=== PATIENT | female | born 1975 | race Caucasian/White ===

== ENCOUNTER 2016-10-27 08:14 | Emergency (ER) | payer BC ==
[2016-10-27 08:20] VITALS: O2SAT 96
--- NOTE | 2016-10-27 08:37 | ERPHSYRPT ---
- History of Present Illness Time Seen by Provider: 10/27/16 08:27 Source: patient Exam Limitations: no limitations Patient Subjective Stated Complaint: rt flankl pain Triage Nursing Assessment: rt flank pain for 1 week. nonproductive cough for one week. pain with movment to rt arm and deep breath. no n/v/d. no fever. denies injury. lungs clear Physician History: Patient is a 41-year-old female who complains of a cough for more than one week and right sided chest pain that is increasing and is exacerbated by moving her right arm, moving her trunk, and coughing. Last night she also developed a small area on her left chest that was painful. She tried oxycodone, naproxen, muscle relaxer, and heat without relief. Her past medical history is significant for pneumonia and histoplasmosis. She has RSD for which she takes narcotics. She denies fever or chills. She has no local doctor. She has not contacted her primary care physician in another town about this problem. She also has a history of COPD. She continues to smoke daily. Timing/Duration: week(s) (1) Severity: moderate Modifying Factors: Improves With: movement, ibuprofen Associated Symptoms: cough, chest pain Allergies/Adverse Reactions: Iodinated Contrast Media - Oral and [Iodinated Contrast Media - IV Dye] Allergy (Severe, Verified 10/27/16 08:20) Hives acetaminophen [From Vicodin] Allergy (Mild, Verified 10/27/16 08:20) Vomiting aspirin Allergy (Mild, Verified 10/27/16 08:20) Vomiting hydrocodone bitartrate [From Vicodin] Adverse Reaction (Intermediate, Verified 10/27/16 08:20) Vomiting Home Medications: Baclofen 10 mg [Lioresal 10 mg] 20 mg PO TID 11/27/15 [History] Linaclotide [Linzess] 145 mcg PO DAILY 11/27/15 [History] Nadolol 20 mg PO BID 11/27/15 [History] Oxycodone HCl [Oxycontin] 1 - 2 tab PO Q6HPRN PRN 11/27/15 [History] Atorvastatin Calcium [Lipitor 40Mg] 40 mg PO DAILY 07/09/16 [History] Isosorbide Mononitrate [Isosorbide Mononitrate ER] 30 mg PO DAILY 07/09/16 [ History] Melatonin/Pyridoxine [Melatonin 3 mg Tablet] 1 each PO HS 07/09/16 [History] PANTOPRAZOLE 40 mg Tablet [Protonix 40MG Tablet] 40 mg PO DAILY 07/09/16 [ History] Hx Tetanus, Diphtheria Vaccination/Date Given: Yes Hx Influenza Vaccination/Date Given: No Hx Pneumococcal Vaccination/Date Given: No Immunizations Up to Date: Yes - Review of Systems Constitutional: No Fever, No Chills Eyes: No Symptoms Ears, Nose, & Throat: No Symptoms Respiratory: Cough Cardiac: Chest Pain Abdominal/Gastrointestinal: No Abdominal Pain, No Nausea, No Vomiting, No Diarrhea Genitourinary Symptoms: No Dysuria Musculoskeletal: No Back Pain, No Neck Pain Skin: No Rash Neurological: No Dizziness, No Focal Weakness, No Sensory Changes Psychological: No Symptoms Endocrine: No Symptoms Hematologic/Lymphatic: No Symptoms Immunological/Allergic: No Symptoms All Other Systems: Reviewed and Negative - Past Medical History Pertinent Past Medical History: Yes Neurological History: Migraines, Other ENT History: No Pertinent History Cardiac History: Arrhythmia, Hypertension, Other Respiratory History: COPD, Other Endocrine Medical History: Diabetes Type II, Other Musculoskeletal History: Degenerative Disk Disease, Fibromyalgia GI Medical History: Hernia, Pancreatitis Psycho-Social History: Depression, Eating Disorders Female Reproductive Disorders: Endometriosis Other Medical History: Hystoplasmosis, R lung partialy removed, pulmonary hypertension, 2 leaky 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 - Past Surgical History Past Surgical History: Yes Neuro Surgical History: No Pertinent History Cardiac: Cardiac Catheterization Respiratory: Lobectomy Gastrointestinal: Cholecystectomy Genitourinary: No Pertinent History Musculoskeletal: Orthopedic Surgery Female Surgical History: Hysterectomy Other Surgical History: BACK X THREE FOR TUMORS AND A NERVE STIMULATOR PUT IN - Social History Smoking Status: Current every day smoker How long have you smoked: yrs Exposure to second hand smoke: No Drug Use: none Patient Lives Alone: No - Nursing Vital Signs Nursing Vital Signs: Initial Vital Signs Temperature 97.8 F Temperature Source Oral Pulse Rate 60 Respiratory Rate 18 Blood Pressure 118/67 Pain Intensity 7 - Physical Exam General Appearance: mild distress Eye Exam: PERRL/EOMI, eyes nml inspection Ears, Nose, Throat Exam: normal ENT inspection, TMs normal, pharynx normal, moist mucous membranes Neck Exam: normal inspection, non-tender, supple, full range of motion Respiratory Exam: normal breath sounds, chest tenderness (right lateral ribs), lungs clear Cardiovascular Exam: regular rate/rhythm, normal heart sounds, normal peripheral pulses, No murmur Gastrointestinal/Abdomen Exam: soft, normal bowel sounds, No tenderness, No mass Pelvic Exam: not done Rectal Exam: not done Back Exam: normal inspection, normal range of motion, No CVA tenderness, No vertebral tenderness Extremity Exam: normal inspection, normal range of motion, pelvis stable Neurologic Exam: alert, oriented x 3, cooperative, normal mood/affect, nml cerebellar function, nml station & gait, sensation nml, No motor deficits Skin Exam: normal color, warm, dry, No rash Lymphatic Exam: No adenopathy SpO2 Interpretation: normal SpO2: 96 Oxygen Delivery: Room Air - Radiology Exams Chest X-ray Interpretation: Teleradiologist Report, Negative Ordered Tests: Active Orders 24 hr Category Date Time Status IV Insertion STAT Care 10/27/16 08:42 Active CHEST 2 VIEWS (PA AND LAT) Stat Exams 10/27/16 08:42 Completed CBC W DIFF Stat Lab 10/27/16 08:53 Completed CMP Stat Lab 10/27/16 08:53 Completed LIPASE Stat Lab 10/27/16 08:53 Completed UA Stat Lab 10/27/16 09:15 Completed Urine Triage Profile Stat Lab 10/27/16 08:42 Completed Medication Summary Discontinued Medications Generic Name Dose Route Start Last Admin Trade Name Rach PRN Reason Stop Dose Admin Sodium Chloride 1,000 mls @ 999 mls/hr 10/27/16 08:42 10/27/16 09:22 Sodium Chloride 0.9% 1000 Ml IV 10/27/16 09:42 999 mls/hr .Q1H1M STA Administration Sodium Chloride Confirm 10/27/16 09:04 Sodium Chloride 0.9% 1000 Ml Administered 10/27/16 09:05 Dose 1,000 mls @ ud .ROUTE .STK-MED ONE Ketorolac Tromethamine 30 mg 10/27/16 08:42 10/27/16 09:22 Toradol 30 Mg Injection IV 10/27/16 08:43 30 mg STAT ONE Administration Ketorolac Tromethamine Confirm 10/27/16 09:04 Toradol 30 Mg Injection Administered 10/27/16 09:05 Dose 30 mg .ROUTE .STK-MED ONE Lab/Rad Data: Laboratory Result Diagrams 10/27/16 08:53 10/27/16 08:53 Laboratory Results 10/27/16 10/27/16 10/27/16 Range/Units 09:15 08:53 08:53 WBC 9.4 (4.0-10.5) K/mm3 RBC 4.48 (4.1-5.4) M/mm3 Hgb 13.2 (12.0-16.0) gm/dl Hct 39.4 (35-47) % MCV 87.9 (78-100) fl MCH 29.5 (26-32) pg MCHC 33.5 (32-36) g/dl RDW 13.2 (11.5-14.0) % Plt Count 254 (150-450) K/mm3 MPV 10.3 H (6-9.5) fl Gran % 45.7 (36.0-66.0) % Lymphocytes % 40.9 (24.0-44.0) % Monocytes % 6.9 (0.0-12.0) % Eosinophils % 5.8 H (0.00-5.0) % Basophils % 0.7 (0.0-0.4) % Basophils # 0.07 (0-0.4) Sodium 141 (136-145) mEq/L Potassium 4.0 (3.5-5.1) mEq/L Chloride 105 (98-107) mEq/L Carbon Dioxide 27.8 (21-32) mEq/L Anion Gap 12.2 (5-15) MEQ/L BUN 14 (9-20) mg/dL Creatinine 0.84 (0.55-1.30) mg/dl Estimated GFR > 60 ML/MIN Glucose 105 (70-110) MG/DL Calcium 8.7 (8.5-10.1) mg/dL Total Bilirubin 0.5 (0.2-1.0) mg/dL AST 12 L (15-37) U/L ALT 14 (12-78) U/L Alkaline Phosphatase 94 (46-116) U/L Serum Total Protein 6.7 (6.4-8.2) gm/dL Albumin 3.2 L (3.4-5.0) g/dL Lipase 153 (73-393) U/L Ur Collection Type VOID Urine Color YELLOW (YELLOW) Urine Appearance CLEAR (CLEAR) Urine pH 5.0 (5-6) Ur Specific [place] 1.025 (1.005-1.025) Urine Protein NEGATIVE (Negative) Urine Glucose (UA) NEGATIVE (NEGATIVE) mg/dL Urine Ketones NEGATIVE (NEGATIVE) Urine Nitrite NEGATIVE (NEGATIVE) Urine Bilirubin NEGATIVE (NEGATIVE) Urine Urobilinogen 0.2 (0-1) mg/dL Urine WBC (Auto) NEGATIVE (NEGATIVE) Urine RBC (Auto) NEGATIVE (0-5) Mike/ul Urine Opiates Level (NEGATIVE) Ur Methadone (NEGATIVE) Urine Barbiturates (NEGATIVE) Ur Phencyclidine (PCP) (NEGATIVE) Urine Amphetamine (NEGATIVE) U Benzodiazepine Level (NEGATIVE) Urine Cocaine (NEGATIVE) Urine Marijuana (THC) (NEGATIVE) Specimen Received 10/27/16 0915 10/27/16 Range/Units 08:42 WBC (4.0-10.5) K/mm3 RBC (4.1-5.4) M/mm3 Hgb (12.0-16.0) gm/dl Hct (35-47) % MCV (78-100) fl MCH (26-32) pg MCHC (32-36) g/dl RDW (11.5-14.0) % Plt Count (150-450) K/mm3 MPV (6-9.5) fl Gran % (36.0-66.0) % Lymphocytes % (24.0-44.0) % Monocytes % (0.0-12.0) % Eosinophils % (0.00-5.0) % Basophils % (0.0-0.4) % Basophils # (0-0.4) Sodium (136-145) mEq/L Potassium (3.5-5.1) mEq/L Chloride (98-107) mEq/L Carbon Dioxide (21-32) mEq/L Anion Gap (5-15) MEQ/L BUN (9-20) mg/dL Creatinine (0.55-1.30) mg/dl Estimated GFR ML/MIN Glucose (70-110) MG/DL Calcium (8.5-10.1) mg/dL Total Bilirubin (0.2-1.0) mg/dL AST (15-37) U/L ALT (12-78) U/L Alkaline Phosphatase (46-116) U/L Serum Total Protein (6.4-8.2) gm/dL Albumin (3.4-5.0) g/dL Lipase (73-393) U/L Ur Collection Type Urine Color (YELLOW) Urine Appearance (CLEAR) Urine pH (5-6) Ur Specific [place] (1.005-1.025) Urine Protein (Negative) Urine Glucose (UA) (NEGATIVE) mg/dL Urine Ketones (NEGATIVE) Urine Nitrite (NEGATIVE) Urine Bilirubin (NEGATIVE) Urine Urobilinogen (0-1) mg/dL Urine WBC (Auto) (NEGATIVE) Urine RBC (Auto) (0-5) Mike/ul Urine Opiates Level NEG. (NEGATIVE) Ur Methadone NEG. (NEGATIVE) Urine Barbiturates NEG. (NEGATIVE) Ur Phencyclidine (PCP) NEG. (NEGATIVE) Urine Amphetamine NEG. (NEGATIVE) U Benzodiazepine Level NEG. (NEGATIVE) Urine Cocaine NEG. (NEGATIVE) Urine Marijuana (THC) NEG. (NEGATIVE) Specimen Received - Progress Progress: improved, pain not gone completely Counseled pt/family regarding: lab results, diagnosis, need for follow-up, rad results - Departure Time of Disposition: 11:09 Departure Disposition: Home Clinical Impression: Musculoskeletal chest pain Condition: Stable Critical Care Time: No Additional Instructions: Tylenol, Ibuprofen, and ice as needed. Continue all meds as previously directed. Follow up in 1 to 2 days if no improvement.
[2016-10-27] MEDS ORDERED: Sodium Chloride 0.9% 1000 ML 1,000 ML IV STA (08:42)
[2016-10-27] MEDS ORDERED: TORAdol 30 mg Injection IV ONE (08:42)
[2016-10-27] MEDS ORDERED: Sodium Chloride 0.9% 1000 ML 1,000 ML ONE (09:04)
[2016-10-27] MEDS ORDERED: TORAdol 30 mg Injection ONE (09:04)
--- NOTE | 2016-10-27 09:12 | XRAY ---
Indication: Chest pain. Comparison: February 22, 2013 PA/lateral chest is clear again with right midlung postsurgical changes. Heart is not enlarged. Vascularity normal. Bony thorax intact again with 2 spinal stimulator leads terminating mid thoracic level. Impression: Nonacute chest.
[2016-10-27 09:13] LABS: BASOPHIL % 0.7 % (0.0-0.4); Eosinophil % 5.8 % (0.00-5.0); Granulocytes % 45.7 % (36.0-66.0); Lymphocytes % 40.9 % (24.0-44.0); Mean Cell Volume 87.9 fl (78-100); Mean Corpuscular Hemoglobin 29.5 pg (26-32); Mean Platelet Volume 10.3 fl (6-9.5); Monocytes % 6.9 % (0.0-12.0); Platelet Count 254 K/mm3 (150-450); Red Blood Count 4.48 M/mm3 (4.1-5.4); Red Cell Distribution Width 13.2 % (11.5-14.0); White Blood Count 9.4 K/mm3 (4.0-10.5)
[2016-10-27 09:21] LABS: ALBUMIN 3.2 g/dL (3.4-5.0); ALKALINE PHOSPHATASE 94 U/L (46-116); ANION GAP 12.2 MEQ/L (5-15); BILIRUBIN,TOTAL 0.5 mg/dL (0.2-1.0); BLOOD UREA NITROGEN 14 mg/dL (9-20); CHLORIDE 105 mEq/L (98-107); Carbon Dioxide 27.8 mEq/L (21-32); Glucose 105 MG/DL (70-110); LIPASE 153 U/L (73-393); SGOT/AST 12 U/L (15-37); SGPT/ALT 14 U/L (12-78); SODIUM 141 mEq/L (136-145); Total Protein 6.7 gm/dL (6.4-8.2)
[2016-10-27 09:24] LABS: COMPLETE URINE MICROSCOPIC? NO; Collection Type VOID
[2016-10-27 11:37] VITALS: BP 97/62; PULSE 62
== END 2016-10-27 11:37 | disposition home or self-care (01) ==
LOC: ED 08:14
DX: R07.89 Other chest pain (principal); R10.9 Unspecified abdominal pain; G90.50 Complex regional pain syndrome I, unspecified; Z79.891 Long term (current) use of opiate analgesic; R05 Cough; F17.200 Nicotine dependence, unspecified, uncomplicated; Z79.899 Other long term (current) drug therapy; I10 Essential (primary) hypertension; E11.9 Type 2 diabetes mellitus without complications
CPT/HCPCS: 36000; 36415; 71020; 80053; 80307; 81002; 83690; 85025; 96360; 96374; 99283; J1885

== ENCOUNTER 2017-03-10 13:14 | Emergency (ER) | payer BC ==
--- NOTE | 2017-03-10 13:41 | ERPHSYRPT ---
- History of Present Illness Time Seen by Provider: 03/10/17 13:30 Source: patient Exam Limitations: other Patient Subjective Stated Complaint: twisted left ankle while walking on concrete. pain and swelling to ankle Triage Nursing Assessment: to room per w/c. skin w/d. ankle slightly swollen and tender to touch. good pedal pulse. foot warm normal color. Physician History: PATIENT WITH HISTORY OF CHRONIC PAIN SYNDROME, CHRONIC BACK PAIN, KNEE PAIN, TWISTED HER LEFT ANKLE TODAY AND HAS LEFT FOOT, ANKLE AND MAE PAIN. UNABLE TO BEAR WEIGHT ONTO LEFT FOOT AND ANKLE. Method of Injury: twisted Occurred: this morning Quality: constant Severity of Pain-Max: moderate Severity of Pain-Current: moderate Lower Extremities Pain: leg: left, foot: left, ankle: left Modifying Factors: Improves With: movement Associated Symptoms: unable to bear weight Allergies/Adverse Reactions: Iodinated Contrast Media - Oral and [Iodinated Contrast Media - IV Dye] Allergy (Severe, Verified 03/10/17 13:25) Hives acetaminophen [From Vicodin] Allergy (Mild, Verified 03/10/17 13:25) Vomiting aspirin Allergy (Mild, Verified 03/10/17 13:25) Vomiting hydrocodone bitartrate [From Vicodin] Adverse Reaction (Intermediate, Verified 03/10/17 13:25) Vomiting Home Medications: Baclofen 10 mg [Lioresal 10 mg] 20 mg PO TID 11/27/15 [History] Linaclotide [Linzess] 145 mcg PO DAILY 11/27/15 [History] Nadolol 20 mg PO BID 11/27/15 [History] Oxycodone HCl [Oxycontin] 1 - 2 tab PO Q6HPRN PRN 11/27/15 [History] Atorvastatin Calcium [Lipitor 40Mg] 40 mg PO DAILY 07/09/16 [History] Isosorbide Mononitrate [Isosorbide Mononitrate ER] 30 mg PO DAILY 07/09/16 [ History] Melatonin/Pyridoxine [Melatonin 3 mg Tablet] 1 each PO HS 07/09/16 [History] PANTOPRAZOLE 40 mg Tablet [Protonix 40MG Tablet] 40 mg PO DAILY 07/09/16 [ History] Hx Tetanus, Diphtheria Vaccination/Date Given: No Hx Influenza Vaccination/Date Given: No Hx Pneumococcal Vaccination/Date Given: No - Review of Systems Constitutional: No Fever, No Chills Eyes: No Symptoms Ears, Nose, & Throat: No Symptoms Respiratory: No Cough, No Dyspnea Cardiac: No Chest Pain, No Edema, No Syncope Abdominal/Gastrointestinal: No Abdominal Pain, No Nausea, No Vomiting, No Diarrhea Genitourinary Symptoms: No Dysuria Musculoskeletal: Injury, Joint Pain, Joint Swelling, No Back Pain, No Neck Pain Skin: No Rash Neurological: No Dizziness, No Focal Weakness, No Sensory Changes Psychological: No Symptoms Endocrine: No Symptoms All Other Systems: Reviewed and Negative - Past Medical History Pertinent Past Medical History: Yes Neurological History: Migraines, Other ENT History: No Pertinent History Cardiac History: Hypertension, Other Respiratory History: Asthma, COPD, Other Endocrine Medical History: No Pertinent History Musculoskeletal History: Degenerative Disk Disease, Fibromyalgia GI Medical History: Hernia, Pancreatitis Psycho-Social History: Depression, Eating Disorders Female Reproductive Disorders: Endometriosis Other Medical History: RSD - R LE, L ANKLE. HISTOPLASMOSIS. LEAKY VALVE, CHRONIC PERICARDITIS. SPINAL CORD STIMULATOR PLACEMENT - Past Surgical History Past Surgical History: Yes Neuro Surgical History: No Pertinent History Cardiac: Cardiac Catheterization Respiratory: Lobectomy Gastrointestinal: Cholecystectomy Genitourinary: No Pertinent History Musculoskeletal: Orthopedic Surgery Female Surgical History: Hysterectomy Other Surgical History: BACK X THREE FOR TUMORS AND A NERVE STIMULATOR PUT IN - Social History Smoking Status: Current every day smoker How long have you smoked: 34 Exposure to second hand smoke: Yes Drug Use: none Patient Lives Alone: No - Nursing Vital Signs Nursing Vital Signs: Initial Vital Signs Temperature 97.9 F Temperature Source Oral Pulse Rate 68 Respiratory Rate 16 Blood Pressure [] 138/77 Pain Intensity 4 - Physical Exam General Appearance: no apparent distress, alert Back Exam: No vertebral tenderness Legs Exam: left leg: soft tissue tenderness (LEFT MID TO DISTAL MAE, NO SWELLING OR CREPITUS OR ECCHYMOSIS), bilateral leg: normal inspection Ankle Exam: left ankle: limited range of motion, soft tissue tenderness ( BIMALLEOLAR TENDERNESS, TENDERNESS LEFT LATERAL MALLEOLUS, NO DEFORMITY, NO JOINT LAXITY ), bilateral ankle: normal inspection Foot Exam: left foot: pain, soft tissue tenderness (PROXIMAL 3RD TO 5TH TO MID METATARSALS, MINIMAL SWELLING, NO ECCHYMOSIS OR CREPITUS, LEFT PEDIS PULSE 2+) DTR - Lower Extremities Exam: knee (R): 2+, knee (L): 2+, ankle (R): 2+, ankle ( L): 2+ Neuro/Tendon Exam: normal sensation, normal motor functions Mental Status Exam: alert, oriented x 3, cooperative Skin Exam: normal color, warm, dry SpO2 Interpretation: normal SpO2: 97 - Radiology Exams Left Lower Leg X-ray Interpretation: Discussed w/ radiologist (THERE IS A SUBTLE CORTICAL AVULSION FRACTURE INJURY THE DISTAL INFERIOR TIP OF THE LEFT FIBULA), No Fracture Left Foot X-ray Interpretation: Discussed w/ radiologist, Negative, No Fracture Left Ankle X-ray Interpretation: Discussed w/ radiologist (AVULSION FRACTURE LEFT LATERAL MALLEOLUS WITH SOFT TISSUE SWELLING) Ordered Tests: Active Orders 24 hr Category Date Time Status Splint STAT Care 03/10/17 14:21 Active ANKLE (3 VIEWS) Stat Exams 03/10/17 13:34 Completed FOOT (MINIMUM 3 VIEWS) Stat Exams 03/10/17 13:35 Completed LOWER LEG Stat Exams 03/10/17 13:35 Completed - Progress Progress: improved Progress Note: 03/10/17 14:19 PATIENT GIVEN DEMEROL 50MG/PHENERGAN 25MG IM, APPLICATION OF LEFT SHORT LEG ORTHOGLASS SPLINT. PATIENT BROUGHT HER OWN CRUTCHES TO EMERGENCY Counseled pt/family regarding: diagnosis, need for follow-up, rad results - Departure Time of Disposition: 14:50 Departure Disposition: Home Clinical Impression: AVULSION FRACTURE LEFT LATERAL MALLEOLUS Condition: Stable Critical Care Time: No Referrals: KENDRA RADFORD MD [Primary Care Provider] - Additional Instructions: AMBULATE USING CRUTCHES NONWEIGHT BEARING LEFT LEG UNTIL EVALUATED BY ORTHOPEDIC SURGEON DR BLANC. ELEVATE ANKLE SPLINT AND APPLY ICE OVER ANKLE SWELLING EVERY 4 HOURS, 30 MINUTES FOR 48 HOURS. CONTINUE PAIN MEDICATIONS PRESCRIBED. CALL DR BLANC OFFICE TODAY FOR APPOINTMENT AT [facility] IN WEDNESDAY MARCH 15, 2017 OR CALL THE ORTHOPEDIC ORTHOPEDIC SURGEON OF YOUR CHOICE FOR APPOINTMENT WITH [facility].
--- NOTE | 2017-03-10 14:10 | XRAY ---
Exam: Two-view left lower leg series from 03/10/2017. Comparison: Indication: Injury today subsequent to fall, pain is greatest at the level of the ankle and goes up to the knee joint. Findings: 2 AP images and a lateral image are submitted for evaluation. I see no acute fracture or other focal bone lesion within the left tibia or fibula shaft. However, there is a suggestion of a tiny cortical avulsion fracture injury at the inferior margin of the left fibula. Mild soft tissue swelling overlies the lateral malleolus. The left knee joint space and left ankle mortise appear unremarkable. Impression: 1. There is no acute fracture of the left tibia or fibula shaft. 2. However, there appears to be a subtle cortical avulsion fracture injury involving the distal inferior tip of the left fibula. Overlying soft tissue swelling is seen laterally.
--- NOTE | 2017-03-10 14:16 | XRAY ---
Exam: 3 views of the left ankle from 03/10/2017. Comparison: Right ankle films from 03/25/2009. Indication: Injury today subsequent to fall, pain is greatest at the level of the ankle, but does radiate up to the knee joint. Findings: AP, oblique, and lateral radiographs of the left ankle were obtained. I see a subtle transverse cortical avulsion fracture injury of the distal inferior tip of the left fibula. Only slight displacement is seen. Moderate soft tissue swelling overlies lateral malleolus. The left ankle joint appears unremarkable. The distal left tibia appears intact. The left hindfoot appears unremarkable. Impression: 1. Subtle transverse cortical avulsion fracture injury of the distal inferior margin of the left fibula. 2. Moderate soft tissue swelling overlies the lateral malleolus.
--- NOTE | 2017-03-10 14:20 | XRAY ---
Exam: 3 views of the left foot from 03/10/2017 Comparison: 3 views of the left foot from 03/25/2009. Indication: Injury today subsequent to fall, pain is greatest in ankle, but does radiate up to knee joint. Findings: AP, oblique, and lateral images of the left foot were obtained. I see no acute fracture or dislocation of the left foot. There is a tiny plantar left calcaneal spur. The joint spaces appear unremarkable. I again see a subtle cortical avulsion fracture injury of the distal tip of the left fibula. Soft tissue swelling overlies the lateral malleolus. Impression: 1. No acute fracture or dislocation of the left foot is seen. 2. Previously noted subtle cortical avulsion fracture injury of the distal inferior tip of the left fibula is again seen on the AP image. Overlying soft tissue swelling is evident.
[2017-03-10 14:58] VITALS: BP 142/78; PULSE 72; O2SAT 98
== END 2017-03-10 14:58 | disposition home or self-care (01) ==
LOC: ED 13:14
DX: S82.62XA Displaced fracture of lateral malleolus of left fibula, initial encounter for closed fracture (principal); X50.0XXA Overexertion from strenuous movement or load, initial encounter
CPT/HCPCS: 73590; 73610; 73630; 99284

== ENCOUNTER 2017-11-07 19:54 | Emergency (ER) | payer BC ==
[2017-11-07 20:09] VITALS: BP 147/64; PULSE 68; O2SAT 100
[2017-11-07] MEDS ORDERED: TORAdol 30 mg Injection IM ONE (20:19)
[2017-11-07] MEDS ORDERED: TORAdol 30 mg Injection ONE (20:22)
--- NOTE | 2017-11-07 20:23 | ERPHSYRPT ---
- History of Present Illness Time Seen by Provider: 11/07/17 20:10 Historian: patient Exam Limitations: no limitations Patient Subjective Stated Complaint: Left Rib pain Triage Nursing Assessment: Pt presents to the ED with complaints of left rib pain. Pt states onset Tuesday. Pt states she exercised tuesday afternoon and then pain began shortly after. Pt states pain worse with deep breathing and movement. Pt denies other complaints, no distress noted, skin pwd. Physician History: 42 y/o female with history of histoplasmosis and pleurisy comes to the ER with complaints of left rib pain for the last few days. Pt mentions while she was at the gym , she heard a popping sound of the left ribs and since then has been having pain. Pt describes the pain as sharp, constant, 6/10, worse with inspiration and not relieved by oxycontin. Pt also admits to mild cough but denies any fever or chills. Timing/Duration: day(s) Activities at Onset: activity Quality: sharpness Location: other (left rib pain) Chest Pain Radiation: no radiation Severity of Pain-Max: moderate Severity of Pain-Current: moderate Modifying Factors: Improves With: nothing Associated Symptoms: denies symptoms Prior Chest Pain/Cardiac Workup: no prior chest pain Nitro Today/Relief: no nitro taken today Aspirin Treatment Today: unknown Allergies/Adverse Reactions: Iodinated Contrast- Oral and IV Dye [Iodinated Contrast Media - IV Dye] Allergy (Severe, Verified 03/10/17 13:25) Hives acetaminophen [From Vicodin] Allergy (Mild, Verified 03/10/17 13:25) Vomiting aspirin Allergy (Mild, Verified 03/10/17 13:25) Vomiting hydrocodone bitartrate [From Vicodin] Adverse Reaction (Intermediate, Verified 03/10/17 13:25) Vomiting Home Medications: Baclofen 10 mg [Lioresal 10 mg] 20 mg PO TID 11/27/15 [History] Linaclotide [Linzess] 145 mcg PO DAILY 11/27/15 [History] Nadolol 20 mg PO BID 11/27/15 [History] Oxycodone HCl [Oxycontin] 1 - 2 tab PO Q6HPRN PRN 11/27/15 [History] Isosorbide Mononitrate [Isosorbide Mononitrate ER] 30 mg PO DAILY 07/09/16 [ History] Melatonin/Pyridoxine [Melatonin 3 mg Tablet] 1 each PO HS 07/09/16 [History] PANTOPRAZOLE 40 mg Tablet [Protonix 40MG Tablet] 40 mg PO DAILY 07/09/16 [ History] Meloxicam 15 mg [Meloxicam 15 MG] 15 mg PO DAILY 11/07/17 [History] Nitroglycerin 0.4 mg Tablet [Nitrostat 0.4 MG Tablet] 0.4 mg SL Q5M PRN [History] Hx Tetanus, Diphtheria Vaccination/Date Given: No Hx Influenza Vaccination/Date Given: No Hx Pneumococcal Vaccination/Date Given: No Immunizations Up to Date: No - Review of Systems Constitutional: No Fever, No Chills Eyes: No Symptoms Ears, Nose, & Throat: No Symptoms Respiratory: Cough, No Dyspnea, No Dyspnea on Exertion (MAE) Cardiac: Chest Pain, No Edema, No Syncope Abdominal/Gastrointestinal: No Abdominal Pain, No Nausea, No Vomiting, No Diarrhea Genitourinary Symptoms: No Dysuria Musculoskeletal: No Back Pain, No Neck Pain Skin: No Rash Neurological: No Dizziness, No Focal Weakness, No Sensory Changes Psychological: No Symptoms Endocrine: No Symptoms All Other Systems: Reviewed and Negative - Past Medical History Pertinent Past Medical History: Yes Neurological History: Migraines, Other ENT History: No Pertinent History Cardiac History: Hypertension, Other Respiratory History: Asthma, COPD, Other Endocrine Medical History: No Pertinent History Musculoskeletal History: Degenerative Disk Disease, Fibromyalgia GI Medical History: Hernia, Pancreatitis Psycho-Social History: Depression, Eating Disorders Female Reproductive Disorders: Endometriosis Other Medical History: RSD - R LE, L ANKLE. HISTOPLASMOSIS. LEAKY VALVE, CHRONIC PERICARDITIS. SPINAL CORD STIMULATOR PLACEMENT - Past Surgical History Past Surgical History: Yes Neuro Surgical History: No Pertinent History Cardiac: Cardiac Catheterization Respiratory: Lobectomy Gastrointestinal: Cholecystectomy Genitourinary: No Pertinent History Musculoskeletal: Orthopedic Surgery Female Surgical History: Hysterectomy Other Surgical History: BACK X THREE FOR TUMORS AND A NERVE STIMULATOR PUT IN - Social History Smoking Status: Current every day smoker How long have you smoked: 35 Exposure to second hand smoke: Yes Drug Use: none Patient Lives Alone: No - Female History Hx Now: No - Nursing Vital Signs Nursing Vital Signs: Initial Vital Signs Temperature 97.4 F 11/07/17 20:02 Pulse Rate 68 11/07/17 20:02 Respiratory Rate 16 11/07/17 20:02 Blood Pressure 147/64 11/07/17 20:02 O2 Sat by Pulse Oximetry 100 11/07/17 20:02 Pain Scale Pain Intensity 6 - Physical Exam General Appearance: mild distress, alert Eye Exam: PERRL/EOMI, eyes nml inspection Ears, Nose, Throat Exam: normal ENT inspection, moist mucous membranes Neck Exam: normal inspection, non-tender, supple, full range of motion Respiratory Exam: normal breath sounds, chest tenderness, lungs clear, No respiratory distress Cardiovascular Exam: regular rate/rhythm, normal heart sounds, normal peripheral pulses Gastrointestinal/Abdomen Exam: soft, No tenderness, No mass Back Exam: normal inspection, No CVA tenderness, No vertebral tenderness Extremity Exam: normal inspection, normal range of motion Neurologic Exam: alert, oriented x 3, cooperative, normal mood/affect, sensation nml, No motor deficits Skin Exam: normal color, warm, dry SpO2: 100 Oxygen Delivery: Room Air - Course Nursing assessment & vital signs reviewed: Yes Ordered Tests: Active Orders 24 hr Category Date Time Status CHEST 2 VIEWS (PA AND LAT) Stat Exams 11/07/17 21:04 Taken RIBS UNILATERAL Stat Exams 11/07/17 21:03 Taken Medication Summary Discontinued Medications Generic Name Dose Route Start Last Admin Trade Name Rach PRN Reason Stop Dose Admin Ketorolac Tromethamine 60 mg 11/07/17 20:19 11/07/17 20:22 Toradol 30 Mg Injection IM 11/07/17 20:20 60 mg STAT ONE Administration Ketorolac Tromethamine Confirm 11/07/17 20:22 Toradol 30 Mg Injection Administered 11/07/17 20:23 Dose 60 mg .ROUTE .STK-MED ONE - Progress Progress: improved Progress Note: 11/07/17 21:16 The CXR and rib x ray is negative for infiltrate, effusion or rib fracture. Pt has relief after being given toradol 60mg IM X 1 dose. Pt has agreed to temporarily stop meloxicam and will add toradol. Pt has F/U with pain management on Tuesday. - Departure Time of Disposition: 21:17 Departure Disposition: Home Clinical Impression: Rib pain Condition: Stable Critical Care Time: No Referrals: KENDRA RADFORD MD [Primary Care Provider] - Instructions: Bruised Rib (DC) Additional Instructions: Follow up with your pain doctor in the next few days. STOP meloxicam for the next 5 days and start on toradol. Prescriptions: Ketorolac Tromethamine [Toradol] 10 mg PO QID PRN #20 tablet PRN Reason: Pain
--- NOTE | 2017-11-08 08:46 | XRAY ---
Indication: Left-sided rib pain. Comparison: October 27, 2016. PA/lateral chest remains clear with again right midlung post surgical changes and spinal stimulator leads. Heart and mediastinal structures within normal limits. Bony thorax intact. Impression: Stable nonacute chest with chronic features.
--- NOTE | 2017-11-08 08:48 | XRAY ---
Indication: Left rib pain 5 days. No known injury. Comparison: None 2 views of the left ribs negative for acute fracture, dislocation, or suspicious bony lesions. Incidental mild AC degenerative arthropathy, cholecystectomy clips, and left-sided spinal stimulator leads.
== END 2017-11-07 21:28 | disposition home or self-care (01) ==
LOC: ED 19:54
DX: R07.81 Pleurodynia (principal); J45.909 Unspecified asthma, uncomplicated; J44.9 Chronic obstructive pulmonary disease, unspecified; M79.7 Fibromyalgia; Z72.0 Tobacco use; Z79.899 Other long term (current) drug therapy
CPT/HCPCS: 71046; 71100; 99284; J1885

== ENCOUNTER 2019-08-12 15:39 | Emergency (ER) | payer BC ==
[2019-08-12] MEDS ORDERED: TORAdol 30 mg Injection IM ONE (15:45)
--- NOTE | 2019-08-12 15:55 | ERPHSYRPT ---
- History of Present Illness Time Seen by Provider: 08/12/19 15:40 Historian: patient Exam Limitations: no limitations Physician History: Patient has had right lower anterior chest pain after falling down from a standing position onto her ribs. Timing/Duration: day(s) (3) Activities at Onset: other (occured after fall from standing position) Quality: aching, stabbing Location: other (right lower anterior chest) Chest Pain Radiation: no radiation Severity of Pain-Max: severe Severity of Pain-Current: severe Modifying Factors: Improves With: rest. Worsens With: coughing, movement, palpation, change in position Associated Symptoms: denies symptoms, No nausea, No vomiting, No palpitations, No heartburn, No abdominal pain, No shortness of breath, No cough, No hurts to breathe, No diaphoresis, No chills, No fever, No fatigue, No weakness, No swelling/lump in chest, No syncope, No rash, No headache, No dizziness, No edema , No back pain Prior Chest Pain/Cardiac Workup: no prior chest pain Nitro Today/Relief: no nitro taken today Aspirin Treatment Today: no aspirin today Allergies/Adverse Reactions: Iodinated Contrast Media [Iodinated Contrast Media - IV Dye] Allergy (Severe, Verified 08/12/19 15:53) Hives acetaminophen [From Vicodin] Allergy (Mild, Verified 08/12/19 15:53) Vomiting aspirin Allergy (Mild, Verified 08/12/19 15:53) Vomiting hydrocodone bitartrate [From Vicodin] Adverse Reaction (Intermediate, Verified 08/12/19 15:53) Vomiting Home Medications: Baclofen 10 mg [Lioresal 10 mg] 20 mg PO TID 11/27/15 [History] Linaclotide [Linzess] 145 mcg PO DAILY 11/27/15 [History] Nadolol 20 mg PO BID 11/27/15 [History] Oxycodone HCl [Oxycontin] 1 - 2 tab PO Q6HPRN PRN 11/27/15 [History] Isosorbide Mononitrate [Isosorbide Mononitrate ER] 30 mg PO DAILY 07/09/16 [ History] Melatonin/Pyridoxine [Melatonin 3 mg Tablet] 1 each PO HS 07/09/16 [History] PANTOPRAZOLE 40 mg Tablet [Protonix 40MG Tablet] 40 mg PO DAILY 07/09/16 [ History] Meloxicam 15 mg [Meloxicam 15 MG] 15 mg PO DAILY 11/07/17 [History] Nitroglycerin 0.4 mg Tablet [Nitrostat 0.4 MG Tablet] 0.4 mg SL Q5M PRN [History] Atorvastatin Calcium 20 mg DAILY 08/12/19 [History] Tizanidine HCl 4 mg DAILY 08/12/19 [History] Hx Tetanus, Diphtheria Vaccination/Date Given: No Hx Influenza Vaccination/Date Given: No Hx Pneumococcal Vaccination/Date Given: No - Review of Systems Constitutional: No Fever, No Chills, No Fatigue Eyes: No Eye Pain, No Vision Changes Ears, Nose, & Throat: No Nose Pain, No Mouth Pain, No Painful Swallowing Respiratory: No Cough, No Dyspnea Cardiac: No Edema, No Palpitations, No Syncope Abdominal/Gastrointestinal: No Abdominal Pain, No Nausea, No Vomiting, No Melena Genitourinary Symptoms: No Hematuria, No Flank Pain Musculoskeletal: No Back Pain, No Neck Pain Skin: No Pruritis, No Rash Neurological: No Dizziness, No Focal Weakness, No Headache, No Parasthesia, No Sensory Changes Psychological: No Anxiety Endocrine: No Excessive Sweating Hematologic/Lymphatic: No Easy Bleeding, No Easy Bruising All Other Systems: Reviewed and Negative - Past Medical History Pertinent Past Medical History: Yes Neurological History: Migraines, Other ENT History: No Pertinent History Cardiac History: Hypertension, Other Respiratory History: Asthma, COPD, Other Endocrine Medical History: No Pertinent History Musculoskeletal History: Degenerative Disk Disease, Fibromyalgia GI Medical History: Hernia, Pancreatitis Psycho-Social History: Depression, Eating Disorders Female Reproductive Disorders: Endometriosis Other Medical History: RSD - R LE, L ANKLE. HISTOPLASMOSIS. LEAKY VALVE, CHRONIC PERICARDITIS. SPINAL CORD STIMULATOR PLACEMENT - Past Surgical History Past Surgical History: Yes Neuro Surgical History: No Pertinent History Cardiac: Cardiac Catheterization Respiratory: Lobectomy Gastrointestinal: Cholecystectomy Genitourinary: No Pertinent History Musculoskeletal: Orthopedic Surgery Female Surgical History: Hysterectomy Other Surgical History: BACK X THREE FOR TUMORS AND A NERVE STIMULATOR PUT IN - Social History Smoking Status: Current every day smoker How long have you smoked: 35 Exposure to second hand smoke: Yes Drug Use: none Patient Lives Alone: No - Female History Hx Now: No - Nursing Vital Signs Nursing Vital Signs: Initial Vital Signs Temperature 98.2 F 08/12/19 15:42 Pulse Rate 72 08/12/19 15:42 Respiratory Rate 18 08/12/19 15:42 Blood Pressure 135/83 08/12/19 15:42 Pain Scale Pain Intensity 8 - Physical Exam General Appearance: no apparent distress, alert Eye Exam: PERRL/EOMI, eyes nml inspection, No scleral icterus, No pale conjunctivae Ears, Nose, Throat Exam: normal ENT inspection, TMs normal, pharynx normal, moist mucous membranes Neck Exam: normal inspection, non-tender, supple, full range of motion, No meningismus, No Brudzinski, No lymphadenopathy, No midline tenderness Respiratory Exam: normal breath sounds, chest tenderness (right lower anterior chest), lungs clear, No respiratory distress, No airway intact, No accessory muscle use, No crackles/rales, No rhonchi, No wheezing, No stridor, No pleural rub Cardiovascular Exam: regular rate/rhythm, normal heart sounds, normal peripheral pulses, capillary refill <2 sec, No murmur, No friction rub Gastrointestinal/Abdomen Exam: soft, normal bowel sounds, No tenderness, No distention, No mass, No rebound Back Exam: normal inspection, normal range of motion, No CVA tenderness, No vertebral tenderness, No rash Extremity Exam: normal inspection, normal range of motion, pelvis stable, No contusions, No deformities, No lacerations, No inflammation, No swelling Neurologic Exam: alert, oriented x 3, cooperative, digital music instructor II-XII nml as tested, normal mood/affect, nml station & gait, sensation nml Skin Exam: normal color, warm, dry, No rash, No petechiae, No abrasion, No cyanosis, No ecchymosis, No laceration SpO2 Interpretation: normal O2 Delivery: Room Air - Course Nursing assessment & vital signs reviewed: Yes - Radiology Exams Chest X-ray Interpretation: Interpreted by me, Reviewed by me, Negative, No Fracture, No Pneumonia, No Pneumothorax, Nml Heart Size, No Infiltrates, Nml Mediastinum Ordered Tests: Active Orders 24 hr Category Date Time Status CHEST 1 VIEW (PORTABLE) Stat Exams 08/12/19 15:45 Taken Incentive Spirometry UD RT 08/12/19 15:58 Active Medication Summary Discontinued Medications Generic Name Dose Route Start Last Admin Trade Name Rach PRN Reason Stop Dose Admin Ketorolac Tromethamine 60 mg 08/12/19 15:45 08/12/19 16:38 Toradol 30 Mg Injection IM 08/12/19 15:46 60 mg STAT ONE Administration Ketorolac Tromethamine Confirm 08/12/19 16:30 Toradol 30 Mg Injection Administered 08/12/19 16:31 Dose 60 mg .ROUTE .STK-MED ONE - Progress Progress: improved, re-examined Air Movement: good Progress Note: 08/12/19 16:50 Tolerating the Toradol injection well without any type of reaction. Will have respiratory therapy review with patient to do incentive spirometry. 08/12/19 17:20 Patient has not had any reaction to the Toradol. Patient's pain is improving after the injection. Blood Culture(s) Obtained: No Antibiotics given: No Counseled pt/family regarding: diagnosis, need for follow-up, rad results - Departure Departure Disposition: Home Clinical Impression: Elevated blood pressure reading without diagnosis of hypertension Contusion of right chest wall Qualifiers: Encounter type: initial encounter Qualified Code(s): S20.211A - Contusion of right front wall of thorax, initial encounter Condition: Good Critical Care Time: No Referrals: KENDRA RADFORD MD [Primary Care Provider] - Follow Up with PCP/3 days Instructions: DASH Diet, Bruised Rib, Blunt Chest Trauma Additional Instructions: Your chest x-ray was read as negative for any fractures or problems with your lungs by the emergency department physician today. We will notify you if the radiologist's interpretation is different from the emergency department physician's interpretation. Do the incentive spirometry 10 times an hour while awake while you are in any type of chest wall pain. Return immediately back to the emergency department if you have any new fever, worsening pain, with new shortness of breath, new chest pain, new skin rashes, new cough, new coughing up blood, new vomiting, or any other concerning signs or symptoms that were not present at the days return visit for immediate reevaluation in the emergency department. Plan of Treatment: Continue home medications of Mobic and Oxycodone with Incentive Spirometry
[2019-08-12] MEDS ORDERED: TORAdol 30 mg Injection ONE (16:30)
[2019-08-12 17:10] VITALS: BP 100/77; PULSE 63; O2SAT 96
--- NOTE | 2019-08-12 20:00 | XRAY ---
Indication: Right sided chest pain following fall. Comparison: November 07, 2017. Portable chest less inflated with new left base atelectasis/scarring and stable right midlung suture material. Remaining heart and lungs normal. Bony thorax intact again with mild degenerative changes and spinal stimulator leads. Impression: Nonacute chest with chronic features.
== END 2019-08-12 17:45 | disposition home or self-care (01) ==
LOC: ED 15:39
DX: R03.0 Elevated blood-pressure reading, without diagnosis of hypertension (principal); S20.211A Contusion of right front wall of thorax, initial encounter; W18.30XA Fall on same level, unspecified, initial encounter
CPT/HCPCS: 71045; 96372; 99284; J1885

== ENCOUNTER 2019-12-21 19:36 | Emergency (ER) | payer BC ==
--- NOTE | 2019-12-21 21:42 | ERPHSYRPT ---
- History of Present Illness Time Seen by Provider: 12/21/19 21:41 Source: patient, family Exam Limitations: no limitations Physician History: This is a 44-year-old female who has a history of hypertension, asthma, COPD, DJD and fibromyalgia who presents with right knee pain following a fall and twist from a stepstool. The injury occurred approximate 3:00 this afternoon. She had to wait till this evening for her family member to bring her into the hospital. Patient did take her usual OxyContin pain medicine at 330 to help with the pain. Despite her nerve stimulator and the OxyContin the pain has not improved. It has not worsened either. Patient states it hurts to walk on it but is able to do so. Method of Injury: fell, twisted Occurred: this afternoon Quality: aching, throbbing Severity of Pain-Max: moderate Severity of Pain-Current: moderate Lower Extremities Pain: knee: right Modifying Factors: Improves With: movement Associated Symptoms: other (Bear weight.) Allergies/Adverse Reactions: Iodinated Contrast Media [Iodinated Contrast Media - IV Dye] Allergy (Severe, Verified 12/21/19 21:33) Hives acetaminophen [From Vicodin] Allergy (Mild, Verified 12/21/19 21:33) Vomiting aspirin Allergy (Mild, Verified 12/21/19 21:33) Vomiting hydrocodone bitartrate [From Vicodin] Adverse Reaction (Intermediate, Verified 12/21/19 21:33) Vomiting Home Medications: Baclofen 10 mg [Lioresal 10 mg] 20 mg PO TID 11/27/15 [History] Linaclotide [Linzess] 145 mcg PO DAILY 11/27/15 [History] Oxycodone HCl [Oxycontin] 1 - 2 tab PO Q6HPRN PRN 11/27/15 [History] nadoloL [Nadolol] 20 mg PO BID 11/27/15 [History] Isosorbide Mononitrate [Isosorbide Mononitrate ER] 30 mg PO DAILY 07/09/16 [ History] Melatonin/Pyridoxine [Melatonin 3 mg Tablet] 1 each PO HS 07/09/16 [History] PANTOPRAZOLE 40 mg Tablet [Protonix 40MG Tablet] 40 mg PO DAILY 07/09/16 [ History] Meloxicam 15 mg [Meloxicam 15 MG] 15 mg PO DAILY 11/07/17 [History] Nitroglycerin 0.4 mg Tablet [Nitrostat 0.4 MG Tablet] 0.4 mg SL Q5M PRN [History] Atorvastatin Calcium 20 mg DAILY 08/12/19 [History] Tizanidine HCl 4 mg DAILY 08/12/19 [History] Hx Tetanus, Diphtheria Vaccination/Date Given: No Hx Influenza Vaccination/Date Given: No Hx Pneumococcal Vaccination/Date Given: No - Review of Systems Constitutional: No Symptoms Eyes: No Symptoms Ears, Nose, & Throat: No Symptoms Respiratory: No Symptoms Cardiac: No Symptoms Abdominal/Gastrointestinal: No Symptoms Genitourinary Symptoms: No Symptoms Musculoskeletal: Fall (Knee), Injury Skin: No Symptoms Neurological: No Symptoms Psychological: No Symptoms Endocrine: No Symptoms Hematologic/Lymphatic: No Symptoms Immunological/Allergic: No Symptoms All Other Systems: Reviewed and Negative - Past Medical History Pertinent Past Medical History: Yes Neurological History: Migraines, Other ENT History: No Pertinent History Cardiac History: Hypertension, Other Respiratory History: Asthma, COPD, Other Endocrine Medical History: No Pertinent History Musculoskeletal History: Degenerative Disk Disease, Fibromyalgia GI Medical History: Hernia, Pancreatitis Psycho-Social History: Depression, Eating Disorders Female Reproductive Disorders: Endometriosis Other Medical History: RSD - R LE, L ANKLE. HISTOPLASMOSIS. LEAKY VALVE, CHRONIC PERICARDITIS. SPINAL CORD STIMULATOR PLACEMENT - Past Surgical History Past Surgical History: Yes Neuro Surgical History: No Pertinent History Cardiac: Cardiac Catheterization Respiratory: Lobectomy Gastrointestinal: Cholecystectomy Genitourinary: No Pertinent History Musculoskeletal: Orthopedic Surgery Female Surgical History: Hysterectomy Other Surgical History: BACK X THREE FOR TUMORS AND A NERVE STIMULATOR PUT IN - Social History Smoking Status: Current every day smoker How long have you smoked: 35 Exposure to second hand smoke: Yes Drug Use: none Patient Lives Alone: No - Nursing Vital Signs Nursing Vital Signs: Initial Vital Signs Temperature 97.9 F 12/21/19 21:34 Pulse Rate 57 L 12/21/19 21:34 Respiratory Rate 18 12/21/19 21:34 Blood Pressure 147/80 12/21/19 21:34 O2 Sat by Pulse Oximetry 98 12/21/19 21:34 Pain Scale Pain Intensity 7 - Physical Exam General Appearance: no apparent distress, alert, anxiety Eyes, Ears, Nose, Throat Exam: normal ENT inspection, moist mucous membranes Neck Exam: normal inspection, non-tender, supple, full range of motion Cardiovascular/Respiratory Exam: chest non-tender Gastrointestinal/Abdominal Exam: non-tender Back Exam: normal inspection, normal range of motion, No CVA tenderness, No vertebral tenderness Hips Exam: bilateral: non-tender, normal inspection, normal range of motion, no evidence of injury Legs Exam: bilateral leg: non-tender, normal inspection, normal range of motion , no evidence of injury Knees Exam: right knee: ecchymosis (Mild anterior knee and right lateral knee), pain, soft tissue tenderness, swelling, left knee: non-tender, normal inspection , normal range of motion, no evidence of injury Ankle Exam: bilateral ankle: non-tender, normal inspection, normal range of motion, no evidence of injury Foot Exam: bilateral foot: non-tender, normal inspection, normal range of motion , no evidence of injury Neuro/Tendon Exam: normal sensation, normal motor functions, normal tendon functions, responds to pain Mental Status Exam: alert, oriented x 3, cooperative Skin Exam: warm, dry, ecchymosis (See above) SpO2 Interpretation: normal O2 Delivery: Room Air - Course Nursing assessment & vital signs reviewed: Yes Ordered Tests: Active Orders 24 hr Category Date Time Status KNEE (3 VIEWS) Stat Exams 12/21/19 21:42 Ordered - Progress Progress: improved, pain not gone completely Progress Note: 12/21/19 22:33 X-ray of right knee reveals no evidence of any acute fracture or dislocation Counseled pt/family regarding: diagnosis, need for follow-up, rad results - Departure Departure Disposition: Home Clinical Impression: Right knee sprain Condition: Stable Critical Care Time: No Referrals: KENDRA RADFORD MD [Primary Care Provider] - Additional Instructions: Ice pack to area 3 times a day for the next 3 days. Continue your pain medication as prescribed. Use crutches and weightbearing as tolerated.
[2019-12-21] MEDS ORDERED: Hydromorphone 1 mg/ml Ampule IM ONE (22:26)
[2019-12-21] MEDS ORDERED: ZOFRAN ODT 4 MG PO ONE (22:27)
[2019-12-21] MEDS ORDERED: Hydromorphone 1 mg/ml Ampule ONE (22:39)
[2019-12-21] MEDS ORDERED: ZOFRAN ODT 4 MG ONE (22:39)
[2019-12-21 23:17] VITALS: BP 128/79; PULSE 74; O2SAT 96
--- NOTE | 2019-12-22 07:17 | XRAY ---
Indication: Pain following fall. Comparison: October 14, 2006. 3 views of the right knee again demonstrates small nonspecific effusion more than before. Stable 2 tiny tibial spine heterotopic ossifications. No other bony, articular, or soft tissue abnormalities.
== END 2019-12-21 23:18 | disposition home or self-care (01) ==
LOC: ED 19:36
DX: S83.91XA Sprain of unspecified site of right knee, initial encounter (principal); W50.2XXA Accidental twist by another person, initial encounter; Y93.9 Activity, unspecified; Y92.9 Unspecified place or not applicable; I10 Essential (primary) hypertension; J45.909 Unspecified asthma, uncomplicated; J44.9 Chronic obstructive pulmonary disease, unspecified; M19.90 Unspecified osteoarthritis, unspecified site; M79.7 Fibromyalgia; Z79.899 Other long term (current) drug therapy
CPT/HCPCS: 73562; 96372; 99284; J1170; Q0162

== ENCOUNTER 2021-07-25 11:59 | Emergency (ER) | payer BC ==
--- NOTE | 2021-07-25 13:03 | ERPHSYRPT ---
- History of Present Illness Time Seen by Provider: 07/25/21 12:18 Source: patient Exam Limitations: no limitations Patient Subjective Stated Complaint: fell tuesday morning and now co pain to right knee and left ankle, Triage Nursing Assessment: pt alert, resp easy. arrived per wc, skin w/d/p. refuses to wear a mask Physician History: 45 years old female presented in the ER with chief complaint of pain left ankle and right knee after she twisted 4 days ago while going downstairs where she missed a step. Hit her right knee against concrete. No injury anywhere else. She was able to get up and ambulate but has more pain in left ankle with ambulation especially on the lateral aspect and feels better with applying brace on it. Also have some pain in the right knee and a skin abrasion. Does report multiple right knee surgeries in the past. Patient is on chronic pain medications/spinal stimulator, pain is fairly controlled with them. Up-to-date with tetanus. Method of Injury: fell, twisted Occurred: days ago (4) Quality: sharpness Severity of Pain-Max: moderate Severity of Pain-Current: moderate Lower Extremities Pain: knee: right, ankle: left Modifying Factors: Improves With: immobilization, rest. Worsens With: movement Allergies/Adverse Reactions: Iodinated Contrast Media [Iodinated Contrast Media - IV Dye] Allergy (Severe, Verified 07/25/21 12:13) Hives acetaminophen [From Vicodin] Allergy (Mild, Verified 07/25/21 12:13) Vomiting aspirin Allergy (Mild, Verified 07/25/21 12:13) Vomiting hydrocodone bitartrate [From Vicodin] Adverse Reaction (Intermediate, Verified 07/25/21 12:13) Vomiting Home Medications: Baclofen 10 mg [Lioresal 10 mg] 20 mg PO TID 11/27/15 [History] Linaclotide [Linzess] 145 mcg PO DAILY 11/27/15 [History] Oxycodone HCl [Oxycontin] 1 - 2 tab PO Q6HPRN PRN 11/27/15 [History] nadoloL [Nadolol] 20 mg PO BID 11/27/15 [History] Isosorbide Mononitrate [Isosorbide Mononitrate ER] 30 mg PO DAILY 07/09/16 [History] Melatonin/Pyridoxine [Melatonin 3 mg Tablet] 1 each PO HS 07/09/16 [History] PANTOPRAZOLE 40 mg Tablet [Protonix 40MG Tablet] 40 mg PO DAILY 07/09/16 [History] Meloxicam 15 mg [Meloxicam 15 MG] 15 mg PO DAILY 11/07/17 [History] Nitroglycerin 0.4 mg Tablet [Nitrostat 0.4 MG Tablet] 0.4 mg SL Q5M PRN 11/07/17 [History] Atorvastatin Calcium 20 mg DAILY 08/12/19 [History] Tizanidine HCl 4 mg DAILY 08/12/19 [History] Apremilast [Otezla] 1 ea DAILY 07/25/21 [History] Carvedilol 12.5 mg [Coreg 12.5 mg] 1 ea DAILY 07/25/21 [History] Clopidogrel Bisulfate 75 mg [PLAVIX 75 MG Tablet] 1 ea DAILY 07/25/21 [History] Hydroxychloroquine Sulfate 1 ea DAILY 07/25/21 [History] Ondansetron [Ondansetron Odt] 1 ea DAILY 07/25/21 [History] Hx Tetanus, Diphtheria Vaccination/Date Given: No Hx Influenza Vaccination/Date Given: No Hx Pneumococcal Vaccination/Date Given: No Immunizations Up to Date: Yes Travel Risk - International Travel Have you traveled outside of the country in past 3 weeks: No - Coronavirus Screening Are you exhibiting any of the following symptoms?: No Close contact with a COVID-19 positive Pt in past 14-21 Days: No - Vaccine Status Have you recieved a Covid-19 vaccination: No - Review of Systems Constitutional: No Symptoms Ears, Nose, & Throat: No Symptoms Respiratory: No Symptoms Cardiac: No Symptoms Musculoskeletal: Arthralgias, Back Pain, Injury, Joint Redness, Joint Pain Skin: No Symptoms Neurological: No Symptoms Psychological: No Symptoms Endocrine: No Symptoms Hematologic/Lymphatic: No Symptoms - Past Medical History Pertinent Past Medical History: Yes Neurological History: Migraines ENT History: No Pertinent History Cardiac History: Arrhythmia Respiratory History: COPD, Sleep Apnea Endocrine Medical History: No Pertinent History Musculoskeletal History: Degenerative Disk Disease, Fibromyalgia GI Medical History: Hernia, Pancreatitis History: No Pertinent History Psycho-Social History: Depression, Eating Disorders Female Reproductive Disorders: Endometriosis Other Medical History: Pt has ear piercings for her migraines, notes that helps. 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 Spinal cord internal stimulator for back and leg pain. 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 - Past Surgical History Past Surgical History: Yes Neuro Surgical History: No Pertinent History Cardiac: Cardiac Catheterization Respiratory: Lobectomy Gastrointestinal: Cholecystectomy Genitourinary: No Pertinent History Musculoskeletal: Orthopedic Surgery Female Surgical History: Hysterectomy Other Surgical History: BACK X THREE FOR TUMORS AND A NERVE STIMULATOR PUT IN - Social History Smoking Status: Current every day smoker How long have you smoked: 35 Exposure to second hand smoke: Yes Drug Use: none Patient Lives Alone: No - Female History Hx Last Menstrual Period: hyster Hx Now: No - Nursing Vital Signs Nursing Vital Signs: Pain Scale Pain Intensity 3 - Physical Exam General Appearance: no apparent distress, alert, anxiety Neck Exam: normal inspection, supple, full range of motion Cardiovascular/Respiratory Exam: normal breath sounds, regular rate/rhythm Back Exam: normal inspection, normal range of motion, No CVA tenderness Hips Exam: bilateral: non-tender, normal inspection, normal range of motion, no evidence of injury Legs Exam: bilateral leg: non-tender, normal inspection, normal range of motion, no evidence of injury Knees Exam: right knee: bone tenderness (Medial aspect of knee), pain, left knee: non-tender, normal inspection, normal range of motion, no evidence of injury Ankle Exam: right ankle: non-tender, normal inspection, normal range of motion, no evidence of injury, left ankle: bone tenderness (Lateral malleolus), pain, soft tissue tenderness, swelling (Lateral malleolus) Foot Exam: bilateral foot: non-tender, normal inspection, normal range of motion, no evidence of injury, other (No left foot base of fifthDorsal tenderness) Neuro/Tendon Exam: normal sensation, normal motor functions, normal tendon functions Mental Status Exam: alert, oriented x 3, cooperative Skin Exam: normal color SpO2 Interpretation: normal SpO2: 96 O2 Delivery: Room Air Ordered Tests: Active Orders 24 hr Category Date Time Status ANKLE (3 VIEWS) Stat Exams 07/25/21 12:27 Ordered KNEE (3 VIEWS) Stat Exams 07/25/21 12:28 Ordered - Progress Progress: unchanged Progress Note: 07/25/21 13:01 Patient does not want any pain medications. I did not appreciate any obvious fracture dislocation of the right knee but has avulsion fracture left ankle lateral malleolus. Placed in long boot. Weightbearing as tolerated and outpatient follow-up with podiatry. Counseled pt/family regarding: diagnosis, need for follow-up, rad results - Departure Departure Disposition: Home Clinical Impression: Ankle fracture, lateral malleolus, closed Qualifiers: Encounter type: initial encounter Fracture alignment: nondisplaced Laterality: left Qualified Code(s): S82.65XA - Nondisplaced fracture of lateral malleolus of left fibula, initial encounter for closed fracture Contusion of right knee Qualifiers: Encounter type: initial encounter Qualified Code(s): S80.01XA - Contusion of right knee, initial encounter Condition: Stable Critical Care Time: No Referrals: KENDRA RADFORD MD [Primary Care Provider] - Follow Up with PCP/3 days ARELI MISHRA DPM [ACTIVE STAFF] - (Call Tuesday for reevaluation) Instructions: Ankle Fracture (DC) Additional Instructions: Continue with your pain medications. Weightbearing as tolerated. Keep it elevated. Follow-up with podiatry for reevaluation early next week. Return to ER for increasing pain swelling etc.
[2021-07-25 13:12] VITALS: BP 131/83; PULSE 76
[2021-07-25 13:17] VITALS: O2SAT 96
--- NOTE | 2021-07-25 21:50 | XRAY ---
Indication: Pain following days ago. Comparison: None 3 view right knee demonstrates mild osteopenia, minimal medial bony spurring, and 1 cm suprapatella heterotopic ossification. No other bony, articular, or soft tissue abnormalities.
--- NOTE | 2021-07-25 21:52 | XRAY ---
Indication: Pain following fall days ago. Comparison: None 3 view left ankle demonstrates minimal lateral soft tissue swelling, mild osteopenia, small lateral malleolus tip spur, and tiny plantar heel spur. No other bony, articular, or soft tissue abnormalities.
== END 2021-07-25 13:22 | disposition home or self-care (01) ==
LOC: ED 11:59
DX: S82.65XA Nondisplaced fracture of lateral malleolus of left fibula, initial encounter for closed fracture (principal); S80.01XA Contusion of right knee, initial encounter; M25.561 Pain in right knee; X50.1XXA Overexertion from prolonged static or awkward postures, initial encounter; Y93.89 Activity, other specified; Y92.89 Other specified places as the place of occurrence of the external cause; W18.39XA Other fall on same level, initial encounter
CPT/HCPCS: 73562; 73610; 99284; L4386

== ENCOUNTER 2022-04-07 12:37 | Emergency (ER) | payer BC ==
--- NOTE | 2022-04-07 12:44 | ERPHSYRPT ---
- History of Present Illness Time Seen by Provider: 04/07/22 12:44 Source: patient Exam Limitations: no limitations Physician History: This a 46-year-old overweight white female who has chronic low back pain and it suddenly worsened after lifting her mother off the floor this morning. Her primary concern is that she might of injured her lower back. Patient is on baclofen, tizanidine and oxycodone at home. She also has a pain stimulator in place. She is wanting both pain relief and x-rays. Timing/Duration: today Method of Injury: lifting, twisted, turning Quality: sharp, stabbing Back Pain Location: lumbar spine, paraspinous muscles Severity of Pain-Max: moderate Severity of Pain-Current: moderate Modifying Factors: Improves With: movement Associated Symptoms: lower back pain, muscle spasms, No urinary incontinence, No problems urinating, No numbness in legs/feet Previous symptoms: same symptoms as today Allergies/Adverse Reactions: Iodinated Contrast Media [Iodinated Contrast Media - IV Dye] Allergy (Severe, Verified 07/25/21 12:13) Hives aspirin Allergy (Mild, Verified 07/25/21 12:13) Vomiting hydrocodone bitartrate [From Vicodin] Adverse Reaction (Intermediate, Verified 07/25/21 12:13) Vomiting Home Medications: Linaclotide [Linzess] 145 mcg PO DAILY 11/27/15 [History] Oxycodone HCl [Oxycontin] 1 - 2 tab PO TID 11/27/15 [History] Isosorbide Mononitrate [Isosorbide Mononitrate ER] 30 mg PO DAILY 07/09/16 [History] Melatonin/Pyridoxine [Melatonin 3 mg Tablet] 1 each PO HS 07/09/16 [History] PANTOPRAZOLE 40 mg Tablet [Protonix 40MG Tablet] 40 mg PO DAILY 07/09/16 [History] Nitroglycerin 0.4 mg Tablet [Nitrostat 0.4 MG Tablet] 0.4 mg SL Q5M PRN 11/07/17 [History] Tizanidine HCl 4 mg DAILY 08/12/19 [History] Apremilast [Otezla] 1 ea DAILY 07/25/21 [History] Carvedilol 12.5 mg [Coreg 12.5 mg] 1 ea DAILY 07/25/21 [History] Clopidogrel Bisulfate [PLAVIX Tablet] 1 ea DAILY 07/25/21 [History] Hydroxychloroquine Sulfate 1 ea DAILY 07/25/21 [History] Ondansetron [Ondansetron Odt] 1 ea DAILY 07/25/21 [History] Hx Tetanus, Diphtheria Vaccination/Date Given: No Hx Influenza Vaccination/Date Given: No Hx Pneumococcal Vaccination/Date Given: No Travel Risk - International Travel Have you traveled outside of the country in past 3 weeks: No - Coronavirus Screening Are you exhibiting any of the following symptoms?: No Close contact with a COVID-19 positive Pt in past 14-21 Days: No - Vaccine Status Have you recieved a Covid-19 vaccination: No - Review of Systems Constitutional: No Symptoms Eyes: No Symptoms Ears, Nose, & Throat: No Symptoms Respiratory: No Symptoms Cardiac: No Symptoms Abdominal/Gastrointestinal: No Symptoms Genitourinary Symptoms: No Symptoms Musculoskeletal: Back Pain Skin: No Symptoms Neurological: No Symptoms Psychological: No Symptoms Endocrine: No Symptoms Hematologic/Lymphatic: No Symptoms Immunological/Allergic: No Symptoms All Other Systems: Reviewed and Negative - Past Medical History Pertinent Past Medical History: Yes Neurological History: Migraines ENT History: No Pertinent History Cardiac History: Arrhythmia Respiratory History: COPD, Sleep Apnea Endocrine Medical History: No Pertinent History Musculoskeletal History: Degenerative Disk Disease, Fibromyalgia GI Medical History: Hernia, Pancreatitis History: No Pertinent History Psycho-Social History: Depression, Eating Disorders Female Reproductive Disorders: Endometriosis Other Medical History: Pt has ear piercings for her migraines, notes that helps. 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 Spinal cord internal stimulator for back and leg pain. 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 - Past Surgical History Past Surgical History: Yes Neuro Surgical History: No Pertinent History Cardiac: Cardiac Catheterization Respiratory: Lobectomy Gastrointestinal: Cholecystectomy Genitourinary: No Pertinent History Musculoskeletal: Orthopedic Surgery Female Surgical History: Hysterectomy Other Surgical History: BACK X THREE FOR TUMORS AND A NERVE STIMULATOR PUT IN - Social History Smoking Status: Current every day smoker How long have you smoked: 35 Exposure to second hand smoke: Yes Drug Use: none Patient Lives Alone: No - Nursing Vital Signs Nursing Vital Signs: Initial Vital Signs Temperature 97.6 F 04/07/22 12:47 Pulse Rate 83 04/07/22 12:47 Respiratory Rate 18 04/07/22 12:47 Blood Pressure 139/94 04/07/22 12:47 O2 Sat by Pulse Oximetry 97 04/07/22 12:47 Pain Scale Pain Intensity [Back] 7 Pain Intensity 7 - Physical Exam General Appearance: no apparent distress, alert, anxiety Eye Exam: PERRL/EOMI, eyes nml inspection Ears, Nose, Throat Exam: normal ENT inspection, moist mucous membranes Neck Exam: normal inspection, non-tender, supple, full range of motion Respiratory Exam: normal breath sounds, lungs clear, airway intact, No chest tenderness, No respiratory distress Cardiovascular Exam: regular rate/rhythm, normal heart sounds, normal peripheral pulses Gastrointestinal Exam: soft, normal bowel sounds, No tenderness Pelvic Exam: not done Rectal Exam: not done Back Exam: normal inspection, decreased range of motion, muscle spasm, No vertebral tenderness Extremity Exam: normal inspection, normal range of motion, pelvis stable Neurologic Exam: alert, oriented x 3, cooperative, rate and cost analyst II-XII nml as tested, normal mood/affect, nml cerebellar function, nml station & gait, sensation nml Skin Exam: normal color, warm, dry Lymphatic Exam: No adenopathy SpO2 Interpretation: normal O2 Delivery: Room Air - Course Nursing assessment & vital signs reviewed: Yes Ordered Tests: Active Orders 24 hr Category Date Time Status LUMBAR LIMITED (2 OR 3 VIEWS) Stat Exams 04/07/22 13:08 Taken Medication Summary Discontinued Medications Generic Name Dose Route Start Last Admin Trade Name Markq PRN Reason Stop Dose Admin Hydromorphone HCl 1 mg 04/07/22 13:08 Hydromorphone 1 Mg/1ml Inj 1 Mg/Ml Syringe IM 04/07/22 13:09 STAT ONE Ondansetron HCl 4 mg 04/07/22 13:08 Zofran 4 Mg/Udtablet Orally Disintegrating PO 04/07/22 13:09 STAT ONE Orphenadrine Citrate 60 mg 04/07/22 13:09 Orphenadrine Citrate 60 Mg/2 Ml Vial IM 04/07/22 13:10 STAT ONE - Progress Progress: improved, pain not gone completely Progress Note: 04/07/22 13:39 Lumbar spine x-ray shows no acute subluxation or acute fracture present Counseled pt/family regarding: diagnosis, need for follow-up, rad results - Departure Departure Disposition: Home Clinical Impression: Acute exacerbation of chronic low back pain Condition: Stable Critical Care Time: No Referrals: KENDRA RADFORD MD [Primary Care Provider] - Follow up/PCP as directed Additional Instructions: Follow-up with your pain specialist, primary prescribing provider for further evaluation management. Continue your home pain medication regimen.
[2022-04-07] MEDS ORDERED: ZOFRAN ODT 4 MG PO ONE (13:08)
[2022-04-07] MEDS ORDERED: Hydromorphone 1 mg/ml Injection IM ONE (13:08)
[2022-04-07] MEDS ORDERED: Norflex 60 MG/2 ML IM ONE (13:09)
[2022-04-07] MEDS ORDERED: Zofran 4 MG/2 ML VIAL ONE (13:55)
[2022-04-07] MEDS ORDERED: Norflex 60 MG/2 ML ONE (13:56)
[2022-04-07] MEDS ORDERED: Hydromorphone 1 mg/ml Injection ONE (13:56)
[2022-04-07] MEDS ORDERED: ZOFRAN ODT 4 MG ONE (13:58)
--- NOTE | 2022-04-07 14:05 | XRAY ---
Exam: 3 view lumbar spine series from 04/07/2022. Comparison: Thoracic spine films from 09/29/2016. Indication: Injured lower back helping mother, complains of pain, history of back stimulator. Findings: AP, lateral, and coned-down lateral images of the lumbosacral spine were obtained. There is a mild rotary levoscoliosis centered at L2-L3. There appear to be 5 [id number] lumbar-type vertebra. Surgical clips consistent with prior cholecystectomy are seen. A metallic power pack is seen posterior to the upper right hemipelvis with 2 electrodes emanating from it and entering the spinal canal at T12-L1 from the posterior aspect. The most superior aspect of the electrode tips have not been included on this study. I note mild to moderate L4 central superior vertebral endplate compression deformity which appears to be new from 09/29/2016. The exact age is unknown. I also note a new mildly prominent Schmorl's node within the anterior aspect of the superior vertebral endplate of L2 as compared to 09/29/2016. Otherwise, no other lumbar spine fracture or AP subluxation is seen. Facet joint arthropathy is seen within the mid and lower lumbar spine. Vascular calcification is seen within the distal abdominal aorta. Surgical clips overlie the lower right hemipelvis. Correlate clinically. Impression: 1. Mild to moderate L4 central superior vertebral endplate compression deformity is seen. I believe this is new from 2015, although its exact age is not clear. Correlate clinically. 2. There is at least a mild Schmorl's node seen involving the anterior aspect of the superior vertebral endplate of L2, also new from 09/29/2016. 3. No other lumbar spine fracture or AP traumatic subluxation is seen. 4. Mild rotary levoscoliosis centered at L2-L3. 5. There is moderate facet joint arthropathy within the mid and lower lumbar spine on the lateral radiographs. 6. A neurostimulator device, evidence of prior cholecystectomy, and surgical clips overlying the lower right hemipelvis are noted.
[2022-04-07 14:36] VITALS: BP 124/74; PULSE 76; O2SAT 96
== END 2022-04-07 14:45 | disposition home or self-care (01) ==
LOC: ED 12:37
DX: G89.29 Other chronic pain (principal); M54.50 Low back pain, unspecified; X50.0XXA Overexertion from strenuous movement or load, initial encounter; Y93.F2 Activity, caregiving, lifting; J44.9 Chronic obstructive pulmonary disease, unspecified; Z72.0 Tobacco use; Z79.891 Long term (current) use of opiate analgesic; Z79.02 Long term (current) use of antithrombotics/antiplatelets; Z79.899 Other long term (current) drug therapy; Z28.310 Unvaccinated for COVID-19
CPT/HCPCS: 72100; 96372; 99283; J1170; J2360; J2405; Q0162

== ENCOUNTER 2022-06-06 19:47 | Emergency (ER) | payer BC ==
[2022-06-06] MEDS ORDERED: TORAdol 30 mg Injection IM ONE (20:12)
[2022-06-06] MEDS ORDERED: Compazine 10 MG/2 ML IM ONE (20:13)
[2022-06-06] MEDS ORDERED: BENADRYL 50 MG/ML IM ONE (20:13)
[2022-06-06] MEDS ORDERED: BENADRYL 50 MG/ML ONE (20:18)
[2022-06-06] MEDS ORDERED: Compazine 10 MG/2 ML ONE (20:18)
[2022-06-06] MEDS ORDERED: TORAdol 30 mg Injection ONE (20:18)
--- NOTE | 2022-06-06 20:19 | ERPHSYRPT ---
- History of Present Illness Source: patient Exam Limitations: no limitations Patient Subjective Stated Complaint: pt states "I have hx of mirgraines but I haven't had one in 5 years. It just came on suddenly." Triage Nursing Assessment: Pt ambulatory to room, pt has wet washcloth on head upon arrival with sunglasses on. pt c/o R sided migraince since 1630, pt took motrin and her prescription of oxycodone. pt has hx of migraines but has not had one in 5 years, pupils PERRL, pt alert and oriented x3 Physician History: 46 yo wf w h/o MGHA presents w R frontal SHERIDAN x 4 hours. Pain is sharp and 8/10. She has had N/V. Light, noise, and head movement make the pain worse. Pt has a h/o MGHA w similar pain. Vision was blurry before the SHERIDAN began. Focal weakness/head trauma/fever all denied. Timing/Duration: other (16:00) Quality: sharpness Head Pain Location: frontal (R frontal) Severity of Pain-Max: severe Severity of Pain-Current: severe Recent Head Trauma: occasional headaches Modifying Factors: Improves With: exposure to light, noise, position Associated Symptoms: nausea/vomiting, sensitive to light, No confusion, No dizziness, No fatigue, No facial pain, No fever/chills, No flushing, No light- headedness, No loss of consciousness, No nasal congestion, No nasal drainage, No neck pain, No numbness in legs/feet, No rash, No sweating, No scotoma, No seizures, No sinus infection, No speech problems, No stiff neck, No trouble walking, No vision changes, No visual disturbance, No weakness Allergies/Adverse Reactions: Iodinated Contrast Media [Iodinated Contrast Media - IV Dye] Allergy (Severe, Verified 06/06/22 20:04) Hives aspirin Allergy (Mild, Verified 06/06/22 20:04) Vomiting hydrocodone bitartrate [From Vicodin] Adverse Reaction (Intermediate, Verified 06/06/22 20:04) Vomiting Home Medications: Linaclotide [Linzess] 145 mcg PO DAILY 11/27/15 [History] Oxycodone HCl [Oxycontin] 1 - 2 tab PO TID 11/27/15 [History] Isosorbide Mononitrate [Isosorbide Mononitrate ER] 30 mg PO DAILY 07/09/16 [History] Melatonin/Pyridoxine [Melatonin 3 mg Tablet] 1 each PO HS 07/09/16 [History] PANTOPRAZOLE 40 mg Tablet [Protonix 40MG Tablet] 40 mg PO DAILY 07/09/16 [History] Nitroglycerin 0.4 mg Tablet [Nitrostat 0.4 MG Tablet] 0.4 mg SL Q5M PRN 11/07/17 [History] Tizanidine HCl 4 mg DAILY 08/12/19 [History] Apremilast [Otezla] 1 ea DAILY 07/25/21 [History] Carvedilol 12.5 mg [Coreg 12.5 mg] 1 ea DAILY 07/25/21 [History] Clopidogrel Bisulfate [PLAVIX Tablet] 1 ea DAILY 07/25/21 [History] Hydroxychloroquine Sulfate 1 ea DAILY 07/25/21 [History] Ondansetron [Ondansetron Odt] 1 ea DAILY 07/25/21 [History] Hx Tetanus, Diphtheria Vaccination/Date Given: Yes Hx Influenza Vaccination/Date Given: No Hx Pneumococcal Vaccination/Date Given: No Immunizations Up to Date: Yes Travel Risk - International Travel Have you traveled outside of the country in past 3 weeks: No - Coronavirus Screening Are you exhibiting any of the following symptoms?: No Close contact with a COVID-19 positive Pt in past 14-21 Days: No - Vaccine Status Have you recieved a Covid-19 vaccination: No - Review of Systems Constitutional: No Symptoms Eyes: No Symptoms Ears, Nose, & Throat: No Symptoms Respiratory: No Symptoms Cardiac: No Symptoms Abdominal/Gastrointestinal: No Symptoms Genitourinary Symptoms: No Symptoms Musculoskeletal: No Symptoms Skin: No Symptoms Neurological: No Symptoms, Headache Psychological: No Symptoms Endocrine: No Symptoms, Excessive Sweating Immunological/Allergic: No Symptoms - Past Medical History Pertinent Past Medical History: Yes Neurological History: Migraines ENT History: No Pertinent History Cardiac History: Arrhythmia Respiratory History: COPD, Sleep Apnea Endocrine Medical History: No Pertinent History Musculoskeletal History: Degenerative Disk Disease, Fibromyalgia GI Medical History: Hernia, Pancreatitis History: No Pertinent History Psycho-Social History: Depression, Eating Disorders Female Reproductive Disorders: Endometriosis Other Medical History: Pt has ear piercings for her migraines, notes that helps. 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 Spinal cord internal stimulator for back and leg pain. 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 - Past Surgical History Past Surgical History: Yes Neuro Surgical History: No Pertinent History Cardiac: Cardiac Catheterization Respiratory: Lobectomy Gastrointestinal: Cholecystectomy Genitourinary: No Pertinent History Musculoskeletal: Orthopedic Surgery Female Surgical History: Hysterectomy Other Surgical History: BACK X THREE FOR TUMORS AND A NERVE STIMULATOR PUT IN - Social History Smoking Status: Current every day smoker How long have you smoked: 35 Exposure to second hand smoke: Yes Drug Use: none Patient Lives Alone: No - Female History Hx Last Menstrual Period: post Hx Now: No - Nursing Vital Signs Nursing Vital Signs: Initial Vital Signs Temperature 97.7 F 06/06/22 19:58 Pulse Rate 84 06/06/22 19:58 Respiratory Rate 18 06/06/22 19:58 Blood Pressure 147/91 06/06/22 19:58 O2 Sat by Pulse Oximetry 98 06/06/22 19:58 Pain Scale Pain Intensity 7 - Physical Exam General Appearance: no apparent distress Eye Exam: PERRL/EOMI, eyes nml inspection Ears, Nose, Throat Exam: normal ENT inspection, TMs normal, pharynx normal, moist mucous membranes Neck Exam: normal inspection, non-tender, supple, full range of motion, No meningismus, No mass, No Brudzinski, No Kernig's, No carotid bruit Respiratory Exam: normal breath sounds, lungs clear, airway intact Cardiovascular Exam: regular rate/rhythm, normal heart sounds, normal peripheral pulses, capillary refill <2 sec, No murmur Gastrointestinal/Abdominal Exam: soft, normal bowel sounds, No tenderness Back Exam: normal inspection, normal range of motion, No CVA tenderness, No vertebral tenderness Extremity Exam: normal inspection, normal range of motion Mental Status Exam: alert, oriented x 3, cooperative malariologist Exam: normal hearing, normal speech, PERRL, tongue midline, No abnormal eye position, No abnormal gag reflex, No abnormal pupil position, No abnormal speech, No facial asymmetry, No facial droop, No facial paresthesias, No facial weakness, No gaze palsy, No hearing deficit (R), No hearing deficit (L), No tongue deviation to R, No tongue deviation to L Coordination/Gait Exam: normal finger to nose, normal gait, normal cerebellar f unction, negative Romberg's sign Motor/Sensory Exam: no motor deficit, no sensory deficit, no pronator drift, negative Babinski's sign DTR Exam: bicep (R): 2+, bicep (L): 2+, knee (R): 2+, knee (L): 2+ Skin Exam: normal color, warm, dry, No rash Lymphatic Exam: No adenopathy SpO2 Interpretation: normal SpO2: 98 O2 Delivery: Room Air - Course Nursing assessment & vital signs reviewed: Yes - CT Exams Head CT Interpretation: Tele-radiologist Report (CT head/Nothing acute) Ordered Tests: Active Orders 24 hr Category Date Time Status HEAD WITHOUT CONTRAST [CT] Stat Exams 06/06/22 21:09 Taken Medication Summary Discontinued Medications Generic Name Dose Route Start Last Admin Trade Name Rach PRN Reason Stop Dose Admin Diphenhydramine HCl 25 mg 06/06/22 20:13 06/06/22 20:20 Diphenhydramine Hcl 50 Mg/Ml Vial IM 06/06/22 20:14 25 mg STAT ONE Administration Diphenhydramine HCl Confirm 06/06/22 20:18 Diphenhydramine Hcl 50 Mg/Ml Vial Administered 06/06/22 20:19 Dose 50 mg .ROUTE .STK-MED ONE Ketorolac Tromethamine 30 mg 06/06/22 20:12 06/06/22 20:21 Ketorolac Tromethamine 30 Mg/Ml Inj IM 06/06/22 20:13 30 mg STAT ONE Administration Ketorolac Tromethamine Confirm 06/06/22 20:18 Ketorolac Tromethamine 30 Mg/Ml Inj Administered 06/06/22 20:19 Dose 30 mg .ROUTE .STK-MED ONE Prochlorperazine Edisylate 10 mg 06/06/22 20:13 06/06/22 20:21 Prochlorperazine Edisylate 10 Mg/2 Ml Vial IM 06/06/22 20:14 10 mg STAT ONE Administration Prochlorperazine Edisylate Confirm 06/06/22 20:18 Prochlorperazine Edisylate 10 Mg/2 Ml Vial Administered 06/06/22 20:19 Dose 10 mg .ROUTE .STK-MED ONE - Progress Progress Note: 06/06/22 20:20 30mg IM Toradol/25mg IM Benadryl/10mg IM Compazine 06/06/22 22:05 Pain improved w meds Counseled pt/family regarding: diagnosis, need for follow-up - Departure Departure Disposition: Home Clinical Impression: Migraine Condition: Stable Critical Care Time: No Referrals: KENDRA RADFORD MD [Primary Care Provider] - Follow up/PCP as directed Instructions: Migraines (DC), Headache, Adult (DC) Additional Instructions: Rest Follow up with your family MD in 1-2 days Return to ER for increasing pain/Focal weakness/Temperature greater than 100.5
[2022-06-06 22:07] VITALS: BP 114/86; PULSE 71
[2022-06-07 01:33] VITALS: O2SAT 98
--- NOTE | 2022-06-07 08:50 | XRAY ---
Indication: Headache. Migraine. Multiple contiguous axial images obtained through the head without contrast. Comparison: None Normal appearing brain parenchyma, ventricles, and bony calvarium. Moderate mucosal thickening both ethmoid sinuses. Mastoid air cells are clear. Impression: Normal CT head without contrast exam. Incidental paranasal sinus disease. Comment: Preliminary interpretation made by [facility]. No critical discrepancy.
== END 2022-06-06 22:09 | disposition home or self-care (01) ==
LOC: ED 19:47
DX: G43.909 Migraine, unspecified, not intractable, without status migrainosus (principal); R11.2 Nausea with vomiting, unspecified; H53.143 Visual discomfort, bilateral; J44.9 Chronic obstructive pulmonary disease, unspecified; Z72.0 Tobacco use; Z79.02 Long term (current) use of antithrombotics/antiplatelets; Z79.899 Other long term (current) drug therapy; Z28.310 Unvaccinated for COVID-19
CPT/HCPCS: 70450; 96372; 99284; J1200; J1885

== ENCOUNTER 2022-06-25 22:03 | Emergency (ER) | payer BC ==
[2022-06-25 22:30] VITALS: O2SAT 96
--- NOTE | 2022-06-25 22:37 | ERPHSYRPT ---
- History of Present Illness Time Seen by Provider: 06/25/22 22:20 Source: patient Exam Limitations: no limitations Patient Subjective Stated Complaint: pt states she accidentally kicked a piece of metal with the top of her foot tonight. Triage Nursing Assessment: pt alert and oriented, answers questions approp. pt back to room per wheelchair andtransferts to stretcher with assist of 1. respirations nonlabored. swelling noted to top of lt foot with some bruising. cap refill and pedal pulse wnl. Physician History: Is a 46-year-old female who presents with left foot pain that occurred prior to arrival to the emergency department. Patient has a history of multiple pain complaints and has a nerve stimulator in place. In addition she takes oxycodone and tenacity in for back pain issues. She took a dose of her pain medicine approximately 8 PM this evening. She accidentally kicked a piece of metal on the dorsal aspect of her left foot. There is swelling pain and bruising noted. Patient specifically states she does not want any narcotic pain medicine just wants to know if her left foot is fractured. Method of Injury: direct blow Occurred: just prior to arrival Severity of Pain-Max: mild Severity of Pain-Current: mild Lower Extremities Pain: foot: left (Dorsal aspect) Modifying Factors: Improves With: movement Associated Symptoms: other (Hurts to bear weight but can do so) Allergies/Adverse Reactions: Iodinated Contrast Media [Iodinated Contrast Media - IV Dye] Allergy (Severe, Verified 06/25/22 22:30) Hives aspirin Allergy (Mild, Verified 06/25/22 22:30) Vomiting hydrocodone bitartrate [From Vicodin] Adverse Reaction (Intermediate, Verified 06/25/22 22:30) Vomiting Home Medications: Linaclotide [Linzess] 145 mcg PO DAILY 11/27/15 [History] Oxycodone HCl [Oxycontin] 1 - 2 tab PO TID 11/27/15 [History] Isosorbide Mononitrate [Isosorbide Mononitrate ER] 30 mg PO DAILY 07/09/16 [History] Melatonin/Pyridoxine [Melatonin 3 mg Tablet] 1 each PO HS 07/09/16 [History] PANTOPRAZOLE 40 mg Tablet [Protonix 40MG Tablet] 40 mg PO DAILY 07/09/16 [History] Nitroglycerin 0.4 mg Tablet [Nitrostat 0.4 MG Tablet] 0.4 mg SL Q5M PRN 11/07/17 [History] Tizanidine HCl 4 mg DAILY 08/12/19 [History] Apremilast [Otezla] 1 ea DAILY 07/25/21 [History] Carvedilol 12.5 mg [Coreg 12.5 mg] 1 ea DAILY 07/25/21 [History] Clopidogrel Bisulfate [PLAVIX Tablet] 1 ea DAILY 07/25/21 [History] Hydroxychloroquine Sulfate 1 ea DAILY 07/25/21 [History] Ondansetron [Ondansetron Odt] 1 ea DAILY 07/25/21 [History] Hx Tetanus, Diphtheria Vaccination/Date Given: Yes Hx Influenza Vaccination/Date Given: No Hx Pneumococcal Vaccination/Date Given: No Immunizations Up to Date: Yes Travel Risk - International Travel Have you traveled outside of the country in past 3 weeks: No - Coronavirus Screening Are you exhibiting any of the following symptoms?: No Close contact with a COVID-19 positive Pt in past 14-21 Days: No - Vaccine Status Have you recieved a Covid-19 vaccination: No - Review of Systems Constitutional: No Symptoms Eyes: No Symptoms Ears, Nose, & Throat: No Symptoms Respiratory: No Symptoms Cardiac: No Symptoms Abdominal/Gastrointestinal: No Symptoms Genitourinary Symptoms: No Symptoms Musculoskeletal: Injury (Left foot dorsal aspect) Skin: No Symptoms Neurological: No Symptoms Psychological: No Symptoms Endocrine: No Symptoms Hematologic/Lymphatic: No Symptoms Immunological/Allergic: No Symptoms All Other Systems: Reviewed and Negative - Past Medical History Pertinent Past Medical History: Yes Neurological History: Migraines ENT History: No Pertinent History Cardiac History: Arrhythmia Respiratory History: COPD, Sleep Apnea Endocrine Medical History: No Pertinent History Musculoskeletal History: Degenerative Disk Disease, Fibromyalgia GI Medical History: Hernia, Pancreatitis History: No Pertinent History Psycho-Social History: Depression, Eating Disorders Female Reproductive Disorders: Endometriosis Other Medical History: Pt has ear piercings for her migraines, notes that helps. 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 Spinal cord internal stimulator for back and leg pain. 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 - Past Surgical History Past Surgical History: Yes Neuro Surgical History: No Pertinent History Cardiac: Cardiac Catheterization Respiratory: Lobectomy Gastrointestinal: Cholecystectomy Genitourinary: No Pertinent History Musculoskeletal: Orthopedic Surgery Female Surgical History: Hysterectomy Other Surgical History: BACK X THREE FOR TUMORS AND A NERVE STIMULATOR PUT IN - Social History Smoking Status: Current every day smoker How long have you smoked: 35 Exposure to second hand smoke: Yes Drug Use: none Patient Lives Alone: No - Female History Hx Now: No - Nursing Vital Signs Nursing Vital Signs: Initial Vital Signs Temperature 97.1 F 06/25/22 22:14 Pulse Rate 89 06/25/22 22:14 Respiratory Rate 16 06/25/22 22:14 Blood Pressure 129/72 06/25/22 22:14 O2 Sat by Pulse Oximetry 96 06/25/22 22:14 Pain Scale Pain Intensity 2 - Physical Exam General Appearance: no apparent distress, alert Eyes, Ears, Nose, Throat Exam: normal ENT inspection, moist mucous membranes Neck Exam: normal inspection, non-tender, supple, full range of motion Cardiovascular/Respiratory Exam: chest non-tender, no respiratory distress Gastrointestinal/Abdominal Exam: non-tender Back Exam: normal inspection, normal range of motion, No CVA tenderness, No vertebral tenderness Hips Exam: bilateral: non-tender, normal inspection, normal range of motion, no evidence of injury Legs Exam: bilateral leg: non-tender, normal inspection, normal range of motion, no evidence of injury Knees Exam: bilateral knee: non-tender, normal inspection, normal range of motion, no evidence of injury Ankle Exam: bilateral ankle: non-tender, normal inspection, normal range of motion, no evidence of injury Foot Exam: right foot: non-tender, normal inspection, normal range of motion, no evidence of injury, left foot: ecchymosis (Dorsal aspect), soft tissue tenderness (Dorsal aspect), swelling (Dorsal aspect) Neuro/Tendon Exam: normal sensation, normal motor functions, normal tendon functions, no evidence tendon injury Mental Status Exam: alert, oriented x 3, cooperative Skin Exam: normal color, warm, dry SpO2 Interpretation: normal SpO2: 96 O2 Delivery: Room Air - Course Nursing assessment & vital signs reviewed: Yes Ordered Tests: Active Orders 24 hr Category Date Time Status FOOT (MINIMUM 3 VIEWS) Stat Exams 06/25/22 22:41 Taken - Progress Progress: unchanged Progress Note: 06/25/22 22:49 X-ray left foot shows no acute fracture or dislocation Counseled pt/family regarding: diagnosis, need for follow-up, rad results - Departure Departure Disposition: Home Clinical Impression: Contusion of left foot Condition: Stable Critical Care Time: No Referrals: KENDRA RADFORD MD [Primary Care Provider] - Follow up/PCP as directed Additional Instructions: Ice pack to area 3 times a day for the next 3 days. Continue your pain medication as prescribed. For persistent symptoms, follow-up with Dr. Carrillo (podiatry)
[2022-06-25 23:47] VITALS: BP 114/73; PULSE 84
--- NOTE | 2022-06-26 07:46 | XRAY ---
Indication: Pain following kicking injury. Comparison: March 10, 2017 3 nonweightbearing views left foot again demonstrates tiny plantar heel spur. No new/acute bony, articular, or soft tissue abnormalities.
== END 2022-06-25 23:13 | disposition home or self-care (01) ==
LOC: ED 22:03
DX: S90.32XA Contusion of left foot, initial encounter (principal); W22.8XXA Striking against or struck by other objects, initial encounter; J44.9 Chronic obstructive pulmonary disease, unspecified; Z72.0 Tobacco use; Z79.02 Long term (current) use of antithrombotics/antiplatelets; Z79.891 Long term (current) use of opiate analgesic; Z79.899 Other long term (current) drug therapy; Z28.310 Unvaccinated for COVID-19
CPT/HCPCS: 73630; 99282

== ENCOUNTER 2024-08-24 21:00 | Emergency (ER) | payer BC ==
--- NOTE | 2024-08-24 21:28 | ERPHSYRPT ---
- History of Present Illness Time Seen by Provider: 08/24/24 21:28 Source: patient Exam Limitations: no limitations Physician History: The patient, with severe osteoporosis, presents with right thumb and hip pain after a fall. They fell on concrete, landing on their right side, ealier this evening. They have a history of severe osteoporosis and have fractured their back five times in less than two years. They experience pain in their right thumb, describing it as possibly being a jam. It hurts when touched, and they can perform some movements, such as making a the [place] and crossing fingers, but with difficulty. Regarding the right hip, they report pain on the outside that radiates to the inside. They noticed bruising and a knot with some swelling. They have not previously broken their hip. They are concerned about potential fractures from the fall. They have pain medication but wish to avoid being perceived as seeking it unnecessarily. Their primary concern is determining if there are any fractures. Method of Injury: fell Occurred: just prior to arrival Quality: constant, sharpness, stabbing Severity of Pain-Max: severe Severity of Pain-Current: severe Lower Extremities Pain: hip: right, other: right (thumb) Modifying Factors: Improves With: immobilization. Worsens With: movement Associated Symptoms: unable to bear weight Allergies/Adverse Reactions: Iodinated Contrast Media [Iodinated Contrast Media - IV Dye] Allergy (Severe, Verified 08/24/24 21:20) Hives aspirin Allergy (Mild, Verified 08/24/24 21:20) Vomiting hydrocodone bitartrate [From Vicodin] Adverse Reaction (Intermediate, Verified 08/24/24 21:20) Vomiting Home Medications: Linaclotide [Linzess] 145 mcg PO DAILY 11/27/15 [History] Oxycodone HCl [Oxycontin] 1 - 2 tab PO TID 11/27/15 [History] Isosorbide Mononitrate [Isosorbide Mononitrate ER] 30 mg PO DAILY 07/09/16 [History] Melatonin/Pyridoxine [Melatonin 3 mg Tablet] 1 each PO HS 07/09/16 [History] PANTOPRAZOLE 40 mg Tablet [Protonix 40MG Tablet] 40 mg PO DAILY 07/09/16 [History] Nitroglycerin 0.4 mg Tablet [Nitrostat 0.4 MG Tablet] 0.4 mg SL Q5M PRN 11/07/17 [History] Tizanidine HCl 4 mg DAILY 08/12/19 [History] Apremilast [Otezla] 1 ea DAILY 07/25/21 [History] Carvedilol 12.5 mg [Coreg 12.5 mg] 1 ea DAILY 07/25/21 [History] Clopidogrel Bisulfate [PLAVIX Tablet] 1 ea DAILY 07/25/21 [History] Hydroxychloroquine Sulfate 1 ea DAILY 07/25/21 [History] Ondansetron [Ondansetron Odt] 1 ea DAILY 07/25/21 [History] Hx Tetanus, Diphtheria Vaccination/Date Given: Yes Hx Influenza Vaccination/Date Given: No Hx Pneumococcal Vaccination/Date Given: No - Review of Systems All Other Systems: Reviewed and Negative - Past Medical History Pertinent Past Medical History: Yes Neurological History: Migraines ENT History: No Pertinent History Cardiac History: Arrhythmia Respiratory History: COPD, Sleep Apnea Endocrine Medical History: No Pertinent History Musculoskeletal History: Degenerative Disk Disease, Fibromyalgia GI Medical History: Hernia, Pancreatitis History: No Pertinent History Psycho-Social History: Depression, Eating Disorders Female Reproductive Disorders: Endometriosis Other Medical History: Pt has ear piercings for her migraines, notes that helps. 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 Spinal cord internal stimulator for back and leg pain. 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 - Past Surgical History Past Surgical History: Yes Neuro Surgical History: No Pertinent History Cardiac: Cardiac Catheterization Respiratory: Lobectomy Gastrointestinal: Cholecystectomy Genitourinary: No Pertinent History Musculoskeletal: Orthopedic Surgery Female Surgical History: Hysterectomy Other Surgical History: BACK X THREE FOR TUMORS AND A NERVE STIMULATOR PUT IN - Social History Smoking Status: Current every day smoker How long have you smoked: 35 Exposure to second hand smoke: Yes Drug Use: none Patient Lives Alone: No - Nursing Vital Signs Nursing Vital Signs: Initial Vital Signs Pulse Rate 101 H 08/24/24 21:18 Blood Pressure 154/74 08/24/24 21:18 O2 Sat by Pulse Oximetry 96 08/24/24 21:18 Pain Scale Pain Intensity 8 - Physical Exam General Appearance: no apparent distress Hips Exam: right: bone tenderness, ecchymosis, limited range of motion, pain, soft tissue tenderness, swelling Neuro/Tendon Exam: normal sensation Mental Status Exam: alert, oriented x 3, cooperative SpO2 Interpretation: normal O2 Delivery: Room Air Comments: Right hand TTP 1st MTPJ, anatomical snuffbox ROM limited by pain Sensation intact to light touch Able to ok sign, cross fingers, thumbs up - Course Nursing assessment & vital signs reviewed: Yes - Radiology Exams Right Hand X-ray Interpretation: Interpreted by me, No Fracture Right Hip X-ray Interpretation: Interpreted by me, No Fracture - CT Exams Right Pelvis CT Interpretation: Tele-radiologist Report, No Fracture, Other (lytic lesion hip, recommend MRI f/u) Ordered Tests: Active Orders 24 hr Category Date Time Status HAND (MINIMUM 3 VIEWS) Stat Exams 08/24/24 21:29 Completed HIP UNI (2V) INCL PEL IF DONE Stat Exams 08/24/24 21:28 Completed PELVIS WITHOUT CONTRAST [CT] Stat Exams 08/24/24 22:01 Completed Medication Summary Discontinued Medications Generic Name Dose Route Start Last Admin Trade Name Freq PRN Reason Stop Dose Admin Ketorolac Tromethamine 60 mg 08/24/24 22:02 08/24/24 22:29 Ketorolac Tromethamine 30 Mg/Ml Inj IM 08/24/24 22:03 Not Given STAT ONE Ketorolac Tromethamine Confirm 08/24/24 22:07 Ketorolac Tromethamine 30 Mg/Ml Inj Administered 08/24/24 22:08 Dose 60 mg .ROUTE .STK-MED ONE Ketorolac Tromethamine Confirm 08/24/24 22:16 Ketorolac Tromethamine 30 Mg/Ml Inj Administered 08/24/24 22:17 Dose 60 mg .ROUTE .STK-MED ONE - Progress Progress: unchanged Progress Note: Right Thumb Pain with Suspected Scaphoid Fracture Presents with right thumb pain following a fall on concrete. Tenderness over the scaphoid area raises suspicion for a scaphoid fracture. Given severe osteoporosis and history of multiple fractures, the risk of a fracture is high. Even if initial x-rays do not show a fracture, treatment will proceed as if a fracture is present due to the potential for delayed radiographic appearance. Discussed that scaphoid fractures can take weeks to show up on x-ray and may not heal well, necessitating close follow-up. - Order x-ray of right thumb - Place right thumb in a thumb spica wrist brace due to concern for occult scaphoid fx. - Refer to orthopedics for follow-up Right Hip Pain Reports right hip pain following a fall two weeks ago, with pain radiating from the lateral to medial hip. Bruising, a knot, and swelling present. Given severe osteoporosis and multiple fractures, high index of suspicion for a hip fracture. Discussed that if x-ray is inconclusive, a CT scan will be ordered to ensure accurate diagnosis. 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 No fracture noted on right hand and hip XR. Place in thumb spica due to snuffbox tenderness. Recommend f/u with ortho. Given crutches to offload RLE due to hip pain. Counseled pt/family regarding: diagnosis, need for follow-up, rad results Medical Desision Making - Diagnostic Testing Diagnostic test were ordered, analyzed, and reviewed by me: Yes Radiological Interpretation: Interpreted by me, Reviewed by me, Teleradiologist Report - Risk of complications Low Risk: Low risk of morbidity from additional dx testing or treatment - Departure Departure Disposition: Home Clinical Impression: Fall, Osteoporosis, Tenderness of anatomical snuffbox, Right hip pain, Lytic bone lesion of hip, Right hand pain Condition: Good Critical Care Time: No Referrals: KENDRA RADFORD MD [Primary Care Provider] - Follow up/PCP as directed Instructions: Contusion (DC), Preventing falls in adults Outpatient Orders: Ortho Referral Time Frame: 1 Day, Facility: [facility], Location: [facility]TH[facility]
[2024-08-24 21:33] VITALS: RESP 18; TEMP 98.9; O2SAT 97
[2024-08-24] MEDS ORDERED: TORAdol 30 mg Injection ONE ×2 (22:07→22:16)
--- NOTE | 2024-08-24 22:20 | XRAY ---
Indication: Pain following fall. Comparison: None AP pelvis and 2 view right hip demonstrates osteopenia, mild/moderate degenerative changes both hips, mild lower lumbar degenerative spondylosis, right groin surgical clips, and incompletely visualized right epidural generator/lead. No acute findings.
--- NOTE | 2024-08-24 22:20 | XRAY ---
Indication: Thumb pain following fall. Comparison: None 3 view right hand demonstrates osteopenia and mild 1st metacarpal multangular degenerative changes. No other bony, articular, or soft tissue abnormalities.
[2024-08-24] MEDS: TORAdol 30 mg Injection IM ONE (22:29)
--- NOTE | 2024-08-24 23:44 | XRAY ---
CLINICAL HISTORY: right hip pain COMPARISON: None TECHNIQUE: Contiguous axial CT images of Pelvis were obtained without intravenous contrast. Coronal and sagittal reconstructions were likewise performed and indicated to increase the sensitivity for detecting clinically relevant pathology. CT scan was performed according to ALARA (as low as reasonable achievable). FINDINGS: A well-defined small lytic lesion lesion with central sclerotic foci is seen in the neck of the femur involving the medial cortex. No surrounding periosteal reaction or cortical break seen. No acute fracture or dislocation. The visualized muscles and tendons appear grossly unremarkable. No cortical destruction to suggest osteomyelitis. No abscess formation. No significant joint effusion. There are no soft tissue masses. Normal subcutaneous adipose space. IMPRESSION: 1. A well-defined small lytic lesion lesion with central sclerotic foci is seen in the neck of the femur involving the medial cortex, raises possibility of osteoid osteoma. MRI right hip joint is advised Electronically Signed by: Urban Naqvi MD. (08/24/2024 23:40:40 EST)
[2024-08-25 00:20] VITALS: BP 118/72; PULSE 78
== END 2024-08-25 00:21 | disposition home or self-care (01) ==
LOC: ED 21:00
DX: M25.551 Pain in right hip (principal); M79.644 Pain in right finger(s); W19.XXXA Unspecified fall, initial encounter; M81.0 Age-related osteoporosis without current pathological fracture; Z79.01 Long term (current) use of anticoagulants; F17.200 Nicotine dependence, unspecified, uncomplicated
CPT/HCPCS: 72192; 73130; 73502; 99283; 99285; J1885